=== PATIENT | male | born 1955 | race Caucasian/White ===

== ENCOUNTER 2017-09-09 08:58 | Emergency (ER) | payer OTHER ==
[~2017-09-09] VITALS: Ht 180.3 cm; Wt 108.9 kg
[2017-09-09 10:01] LABS: Basophils # (auto) 0 uL; Basophils % (auto) 0.5 % (0.0-2.0); Eosinophils # (auto) 0.3 uL; Hematocrit 33.4 % (41.0-53.0); Hemoglobin 11.3 g/dL (13.5-17.5); Lymphocytes # (auto) 0.6 uL; Lymphocytes % (auto) 8.8 % (10.0-50.0); Mean Corpuscular Hemoglobin 33.9 pg (28.0-32.0); Mean Corpuscular Hgb Conc. 33.7 g/dL (32.0-36.0); Mean Corpuscular Volume 100.6 fL (80.0-100.0); Monocytes % (auto) 14.3 % (0.0-12.0); Neutrophils % (auto) 72.4 % (37.0-80.0); Nucleated Red Blood Cells % 0.1 %; Platelet Count (auto) 190 10^3/uL (140-450); Red Blood Cells 3.33 10^6/uL (4.5-5.90); Red Cell Distribution Width 13.8 % (11.8-14.3); White Blood Cell 6.9 10^3/uL (4.4-10.8)
[2017-09-09 10:14] LABS: INR 3.04 (0.9-1.15); Partial Thromboplastin Time 37.9 sec (22.64-33.71); Prothrombin Time 33.5 sec (9.37-12.3)
[2017-09-09 10:27] LABS: Albumin 3.2 g/dL (3.4-5.0); BUN/Creatinine Ratio 38.9; Bilirubin, Total 0.8 mg/dL (0.2-1.0); Calcium 8.8 mg/dL (8.5-10.1); Potassium 5.3 mmol/L (3.5-5.1); Total Protein 7.4 g/dL (6.4-8.2)
[2017-09-09] MEDS ORDERED: cefTRIAXone 1GM/10ml IVPUSH 10 ML IV ONE (11:15)
[2017-09-09] MEDS ORDERED: BACITRACIN TOP OINT 1 UD PKG TOP ONE (11:15)
[2017-09-09] MEDS ORDERED: LIDOCAINE 2%HCL (LOCAL ANESTH.) INJ 20ML MDV ID ONE ×2 (11:15→12:15)
[2017-09-09] MEDS ORDERED: LIDOCAINE 2%HCL (LOCAL ANESTH.) INJ 20ML MDV ONE (11:53)
[2017-09-09 13:54] LABS: Urine WBC None Seen /hpf (0 - 3)
[2017-09-09 14:08] LABS: Urine Bacteria NONE SEEN /hpf (None Seen); Urine Blood Negative /uL (Negative); Urine Specific Gravity 1.013 (1.001-1.035)
[2017-09-09 14:34] VITALS: BP 155/86
== END 2017-09-09 15:00 | disposition home or self-care (01) ==
LOC: ER 08:58 → EDBD 08:58 → ER 15:00
DX: S81.812A Laceration without foreign body, left lower leg, initial encounter (principal); E11.9 Type 2 diabetes mellitus without complications; E87.5 Hyperkalemia; I48.91 Unspecified atrial fibrillation; E46 Unspecified protein-calorie malnutrition; I11.0 Hypertensive heart disease with heart failure; I50.9 Heart failure, unspecified; W18.30XA Fall on same level, unspecified, initial encounter; Y93.89 Activity, other specified; Y99.8 Other external cause status; Y92.89 Other specified places as the place of occurrence of the external cause
CPT/HCPCS: 13121; 13122; 36415; 73590; 80053; 81001; 85025; 85610; 85730; 93005; 96374

== ENCOUNTER 2017-09-11 16:24 | Observation (INO) | payer OTHER ==
[~2017-09-11] VITALS: Ht 180.3 cm; Wt 108.9 kg
[2017-09-11 17:07] LABS: Hematocrit 31.5 % (41.0-53.0); Hemoglobin 10.7 g/dL (13.5-17.5); Mean Corpuscular Hgb Conc. 33.9 g/dL (32.0-36.0); Mean Corpuscular Volume 100.1 fL (80.0-100.0); Platelet Count (auto) 215 10^3/uL (140-450); Red Blood Cells 3.15 10^6/uL (4.5-5.90); Red Cell Distribution Width 13.9 % (11.8-14.3); White Blood Cell 9.9 10^3/uL (4.4-10.8)
[2017-09-11 17:21] LABS: Band Neutrophils % (manual) 0; Basophils % (manual) 0 (0.0-2.0); Blast Cells 0; Metamyelocytes % 0; Myelocytes % 0; Promyelocytes % 0; Reactive Lymphocytes 0
[2017-09-11 17:24] LABS: Albumin 3.3 g/dL (3.4-5.0); BUN/Creatinine Ratio 35.2; Calcium 8.7 mg/dL (8.5-10.1); Potassium 4.9 mmol/L (3.5-5.1)
[2017-09-11 17:27] LABS: Bilirubin, Total 1.3 mg/dL (0.2-1.0); Total Protein 7.5 g/dL (6.4-8.2)
[2017-09-11 17:48] LABS: Eosinophils % (manual) 1 (0-7); Lymphocytes % (manual) 11 (10.0-50.0); Monocytes % (manual) 14 (0-12)
[2017-09-11] MEDS ORDERED: cefTRIAXone 1GM/10ml IVPUSH 10 ML IV ONE (18:15)
[2017-09-11 19:05] LABS: INR 1.35 (0.9-1.15); Partial Thromboplastin Time 31.1 sec (22.64-33.71); Prothrombin Time 14.8 sec (9.37-12.3)
[2017-09-11] MEDS ORDERED: FUROSEMIDE 40 MG/4 ML VIAL IV ONE (19:15)
[2017-09-11] MEDS ORDERED: VANCOMYCIN 1GM/250ML 250 ML IV ONE (23:30)
[2017-09-12 01:17] VITALS: BP 134/76
== END 2017-09-12 00:52 | disposition short-term general hospital (02) | DRG 602 ==
LOC: ER 16:29 → OVERFLOW 18:16 → ER 09-12 00:52
PROVIDERS: ADMIT Family Medicine; ATTEND Family Medicine
DX: L03.116 Cellulitis of left lower limb (principal); I50.43 Acute on chronic combined systolic (congestive) and diastolic (congestive) heart failure; I48.91 Unspecified atrial fibrillation; I11.0 Hypertensive heart disease with heart failure; E11.9 Type 2 diabetes mellitus without complications; S81.802D Unspecified open wound, left lower leg, subsequent encounter; X58.XXXD Exposure to other specified factors, subsequent encounter; Y93.89 Activity, other specified; Y92.89 Other specified places as the place of occurrence of the external cause; Y99.0 Civilian activity done for income or pay; Z82.49 Family history of ischemic heart disease and other diseases of the circulatory system
CPT/HCPCS: 36415; 71045; 80053; 83605; 83735; 83880; 84443; 85007; 85027; 85610; 85730; 87040; 93005; 93971; 96365; 96375; 99285; G0378; J1940; J3370

== ENCOUNTER 2022-04-15 15:40 | Emergency (ER) | payer OTHER ==
[~2022-04-15] VITALS: Ht 170.2 cm; Wt 75.0 kg
[2022-04-15 16:57] LABS: Basophils # (auto) 0 10 ^3/uL (0-0.2); Basophils % (auto) 0.2 % (0.0-2.0); Eosinophils # (auto) 0 10 ^3/uL (0-0.8); Eosinophils % (auto) 0.2 % (0.0-7.0); Hematocrit 30.3 % (41.0-53.0); Hemoglobin 9.8 g/dL (13.5-17.5); Lymphocytes # (auto) 0.5 10 ^3/uL (0.4-5.4); Lymphocytes % (auto) 5.3 % (10.0-50.0); Mean Corpuscular Hemoglobin 30.6 pg (28.0-32.0); Mean Corpuscular Hgb Conc. 32.3 g/dL (32.0-36.0); Mean Corpuscular Volume 94.8 fL (80.0-100.0); Monocytes # (auto) 1.6 10 ^3/uL (0-1.3); Monocytes % (auto) 15.7 % (0.0-12.0); Neutrophils # (auto) 8.1 10 ^3/uL (1.6-8.6); Neutrophils % (auto) 78.6 % (37.0-80.0); Red Cell Distribution Width 15.1 % (11.8-14.3); White Blood Cell 10.3 10^3/uL (4.4-10.8)
[2022-04-15] MEDS ORDERED: ACETAMINOPHEN 325 MG TAB PO ONE (17:00)
[2022-04-15] MEDS ORDERED: PIPERACILLIN-TAZOB 3.375GM 100 ML IV ONE (17:00)
[2022-04-15 17:16] LABS: Calcium 8.7 mg/dL (8.5-10.1); Potassium 4.4 mmol/L (3.5-5.1)
[2022-04-15 17:20] LABS: BUN/Creatinine Ratio 25.7; Bilirubin, Total 1.2 mg/dL (0.2-1.0); Total Protein 7.9 g/dL (6.4-8.2)
[2022-04-15 17:26] LABS: Magnesium 1.6 mg/dL (1.6-2.6)
[2022-04-15 17:35] LABS: CRP High Sensitivity 1.99 mg/dL (< 0.3)
[2022-04-15] MEDS ORDERED: FUROSEMIDE 100 MG/10ML VIAL IV ONE (18:15)
[2022-04-15] MEDS ORDERED: dilTIAZem 25 MG/5 ML VIAL IV ONE (18:30)
[2022-04-15 20:41] LABS: Urine Bacteria NONE SEEN /hpf (None Seen); Urine Blood 1+ /uL (Negative); Urine Specific Gravity 1.006 (1.001-1.035); Urine WBC 1 /hpf (0 - 3)
[2022-04-15 21:29] VITALS: BP 139/64
== END 2022-04-15 21:54 | disposition short-term general hospital (02) ==
LOC: EDBD 15:40 → ER 15:40
DX: A41.9 Sepsis, unspecified organism (principal); I48.20 Chronic atrial fibrillation, unspecified; I11.0 Hypertensive heart disease with heart failure; I50.9 Heart failure, unspecified; E78.5 Hyperlipidemia, unspecified; Z90.89 Acquired absence of other organs; Z20.822 Contact with and (suspected) exposure to COVID-19
CPT/HCPCS: 36415; 71045; 73630; 74176; 80053; 81001; 82550; 82962; 83605; 83735; 83880; 84484; 85025; 86141; 87040; 87077; 87186; 87426; 93005; 96365; 96366; 96375; 99291; J1940; J2543

== ENCOUNTER → 2022-08-08 | Outpatient (CLI) | payer OTHER ==
[2022-08-08 10:36] LABS: Basophils # (auto) 0 10 ^3/uL (0-0.2); Basophils % (auto) 0.7 % (0.0-2.0); Eosinophils # (auto) 0.5 10 ^3/uL (0-0.8); Eosinophils % (auto) 7.2 % (0.0-7.0); Hematocrit 32.1 % (41.0-53.0); Hemoglobin 10.9 g/dL (13.5-17.5); Lymphocytes # (auto) 0.9 10 ^3/uL (0.4-5.4); Lymphocytes % (auto) 14.1 % (10.0-50.0); Mean Corpuscular Hemoglobin 32.2 pg (28.0-32.0); Mean Corpuscular Hgb Conc. 33.9 g/dL (32.0-36.0); Mean Corpuscular Volume 94.9 fL (80.0-100.0); Monocytes % (auto) 15.5 % (0.0-12.0); Neutrophils # (auto) 4.2 10 ^3/uL (1.6-8.6); Neutrophils % (auto) 62.5 % (37.0-80.0); Red Blood Cells 3.38 10^6/uL (4.5-5.90); White Blood Cell 6.7 10^3/uL (4.4-10.8)
[2022-08-08 10:44] LABS: Urine Bacteria NONE SEEN /hpf (None Seen); Urine Blood Negative /uL (Negative); Urine Specific Gravity 1.011 (1.001-1.035); Urine WBC <1 /hpf (0 - 3)
[2022-08-08 11:03] LABS: Albumin 3.8 g/dL (3.4-5.0); Calcium 9.9 mg/dL (8.5-10.1); Potassium 4.9 mmol/L (3.5-5.1)
[2022-08-08 11:08] LABS: BUN/Creatinine Ratio 40.8; Bilirubin, Total 0.5 mg/dL (0.2-1.0); Total Protein 8.2 g/dL (6.4-8.2)
== END | disposition home or self-care (01) ==
LOC: LAB 10:13
PROVIDERS: ATTEND Internal Medicine
DX: Z12.11 Encounter for screening for malignant neoplasm of colon (principal); I10 Essential (primary) hypertension; E11.9 Type 2 diabetes mellitus without complications
CPT/HCPCS: 36415; 80053; 80061; 81001; 82043; 83036; 83880; 84153; 85025

== ENCOUNTER → 2022-08-14 | Outpatient (CLI) | payer OTHER | END | disposition home or self-care (01) | LOC: XYW 13:26 | PROVIDERS: ATTEND Internal Medicine | DX: I08.0 Rheumatic disorders of both mitral and aortic valves (principal); I48.91 Unspecified atrial fibrillation | CPT/HCPCS: 93306 ==

== ENCOUNTER → 2022-09-17 | Outpatient (CLI) | payer OTHER ==
[2022-09-17 11:51] LABS: Basophils # (auto) 0 10 ^3/uL (0-0.2); Basophils % (auto) 0.7 % (0.0-2.0); Eosinophils # (auto) 0.2 10 ^3/uL (0-0.8); Eosinophils % (auto) 4.1 % (0.0-7.0); Lymphocytes # (auto) 1.2 10 ^3/uL (0.4-5.4); Lymphocytes % (auto) 22.7 % (10.0-50.0); Mean Corpuscular Hgb Conc. 34.4 g/dL (32.0-36.0); Mean Corpuscular Volume 98.9 fL (80.0-100.0); Monocytes # (auto) 0.8 10 ^3/uL (0-1.3); Monocytes % (auto) 14.2 % (0.0-12.0); Neutrophils # (auto) 3.1 10 ^3/uL (1.6-8.6); Neutrophils % (auto) 58.3 % (37.0-80.0); Nucleated Red Blood Cells % 0.1 %; Red Blood Cells 3.23 10^6/uL (4.5-5.90); Red Cell Distribution Width 13.9 % (11.8-14.3); White Blood Cell 5.3 10^3/uL (4.4-10.8)
[2022-09-17 12:43] LABS: Folate (Folic Acid) > 24.00 ng/mL (5.38-24)
== END | disposition home or self-care (01) ==
LOC: LAB 11:17
PROVIDERS: ATTEND Internal Medicine
DX: D64.9 Anemia, unspecified (principal)
CPT/HCPCS: 36415; 82607; 82746; 85025

== ENCOUNTER 2022-11-23 13:56 | Inpatient (IN) | payer OTHER ==
[~2022-11-23] VITALS: Ht 180.3 cm; Wt 88.1 kg
[2022-11-23 15:05] LABS: Basophils # (auto) 0 10 ^3/uL (0-0.2); Basophils % (auto) 0.8 % (0.0-2.0); Eosinophils # (auto) 0.1 10 ^3/uL (0-0.8); Eosinophils % (auto) 1.2 % (0.0-7.0); Hematocrit 31.6 % (41.0-53.0); Hemoglobin 10.6 g/dL (13.5-17.5); Lymphocytes # (auto) 1.1 10 ^3/uL (0.4-5.4); Mean Corpuscular Hemoglobin 33.2 pg (28.0-32.0); Mean Corpuscular Hgb Conc. 33.7 g/dL (32.0-36.0); Mean Corpuscular Volume 98.8 fL (80.0-100.0); Monocytes # (auto) 0.6 10 ^3/uL (0-1.3); Monocytes % (auto) 12.4 % (0.0-12.0); Neutrophils # (auto) 3.4 10 ^3/uL (1.6-8.6); Neutrophils % (auto) 64.6 % (37.0-80.0); Red Cell Distribution Width 13.7 % (11.8-14.3); White Blood Cell 5.2 10^3/uL (4.4-10.8)
[2022-11-23 15:07] LABS: Albumin 4.2 g/dL (3.4-5.0); Calcium 9.5 mg/dL (8.5-10.1); Potassium 5.5 mmol/L (3.5-5.1)
[2022-11-23 15:10] LABS: BUN/Creatinine Ratio 46.9 (10.0-20.0); Bilirubin, Total 0.7 mg/dL (0.2-1.0); Total Protein 7.5 g/dL (6.4-8.2)
[2022-11-23 15:39] LABS: INR 1.06 (0.9-1.15); Partial Thromboplastin Time 30.2 sec (24.6-33.4)
[2022-11-23] MEDS ORDERED: SODIUM BICARBONATE 8.4 % INJ 50ML VIAL IV ONE (16:00)
[2022-11-23] MEDS ORDERED: CALCIUM GLUC 1,000mg/50ml-NS 50 ML IV ONE (16:00)
[2022-11-23] MEDS ORDERED: CLINDAMYCIN 600MG IV 50 ML IV ONE (17:00)
[2022-11-23] MEDS ORDERED: NITROGLYCERIN 0.4 MG SL TAB SL PRN (18:15)
[2022-11-23] MEDS: SODIUM CHLORIDE 0.9% 1,000 ML IV SCH ×2 (18:15→23:30)
[2022-11-23] MEDS ORDERED: hydrALAZINE HCL 20 MG/ML VL IV PRN ×2 (18:15)
[2022-11-23] MEDS ORDERED: ACETAMINOPHEN 325 MG TAB PO PRN (18:15)
[2022-11-23] MEDS ORDERED: MORPHINE SULFATE INJ 2 MG/ml SYRG IV PRN ×2 (18:15)
[2022-11-23] MEDS ORDERED: HYDROcodone-ACET 5/325MG TAB PO PRN (18:15)
[2022-11-23] MEDS ORDERED: DIGO0.12 PO (18:19)
[2022-11-23] MEDS ORDERED: DEXTROSE (50%) 50ML SYRG IV PRN (18:30)
[2022-11-23 19:04] LABS: Cholesterol 120 mg/dL (< 200); HDL Cholesterol 87 mg/dL (40-59); LDL Cholesterol 34 mg/dL (< 100); Triglycerides 36 mg/dL (< 150)
[2022-11-23 19:48] LABS: Urine WBC None Seen /hpf (0 - 3)
[2022-11-23 20:02] LABS: Urine Bacteria NONE SEEN /hpf (None Seen); Urine Blood Negative /uL (Negative); Urine Specific Gravity 1.006 (1.001-1.035)
[2022-11-23] MEDS: ACCU-CHEK COMFORT CURVE STRIP VI SCH (21:24)
[2022-11-23] MEDS: InsuLIN REG 1unit/0.01ml Soln (100units/ml) SC SCH (21:24)
[2022-11-23 23:11] VITALS: BP 149/61
[2022-11-23] MEDS: CLINDAMYCIN 600MG IV 50 ML IV SCH (23:30)
[2022-11-24] MEDS ORDERED: LISI20TA28 PO (00:57)
[2022-11-24] MEDS ORDERED: RIV20T PO (00:57)
[2022-11-24] MEDS ORDERED: SIMV-8 PO (00:57)
[2022-11-24] MEDS ORDERED: METF-371 PO (00:57)
[2022-11-24 05:00] VITALS: BP 139/58
[2022-11-24] MEDS: ACCU-CHEK COMFORT CURVE STRIP VI SCH ×4 (05:03→21:18)
[2022-11-24] MEDS: InsuLIN REG 1unit/0.01ml Soln (100units/ml) SC SCH ×4 (05:04→21:29)
[2022-11-24 05:51] LABS: Basophils # (auto) 0 10 ^3/uL (0-0.2); Basophils % (auto) 0.4 % (0.0-2.0); Eosinophils # (auto) 0.1 10 ^3/uL (0-0.8); Mean Corpuscular Hemoglobin 34.6 pg (28.0-32.0); Monocytes # (auto) 0.7 10 ^3/uL (0-1.3); Neutrophils # (auto) 2.8 10 ^3/uL (1.6-8.6); Neutrophils % (auto) 61.4 % (37.0-80.0); White Blood Cell 4.5 10^3/uL (4.4-10.8)
[2022-11-24 05:56] LABS: Eosinophils % (auto) 1.3 % (0.0-7.0); Hematocrit 27.5 % (41.0-53.0); Hemoglobin 9.7 g/dL (13.5-17.5); Lymphocytes % (auto) 21.2 % (10.0-50.0); Mean Corpuscular Hgb Conc. 35.2 g/dL (32.0-36.0); Mean Corpuscular Volume 98.1 fL (80.0-100.0); Monocytes % (auto) 15.7 % (0.0-12.0); Nucleated Red Blood Cells % 0.1 %; Red Cell Distribution Width 13.9 % (11.8-14.3)
[2022-11-24 06:00] LABS: Potassium 4.6 mmol/L (3.5-5.1)
[2022-11-24 06:07] LABS: Albumin 3.5 g/dL (3.4-5.0); BUN/Creatinine Ratio 47.4 (10.0-20.0); Bilirubin, Total 0.6 mg/dL (0.2-1.0); Calcium 9.3 mg/dL (8.5-10.1); Total Protein 6.5 g/dL (6.4-8.2)
[2022-11-24] MEDS: CLINDAMYCIN 600MG IV 50 ML IV SCH ×3 (06:14→21:17)
[2022-11-24] MEDS ORDERED: cefTRIAXone 1GM/50ML D5W 50 ML IV SCH (09:00)
[2022-11-24 09:11] VITALS: BP 135/57
[2022-11-24] MEDS: DIGOXIN 0.125 MG TAB PO SCH (10:00)
[2022-11-24] MEDS: ENOXAPARIN SOD 40 MG/0.4 ML SYRINGE SC SCH (10:11)
[2022-11-24 11:49] LABS: Urine Bacteria None Seen /hpf (None Seen); Urine WBC None Seen /hpf (0 - 3)
[2022-11-24 13:00] VITALS: BP 127/53
[2022-11-24 13:31] LABS: Creatinine, Urine 48 mg/dL (30.0-125.0); Protein, Urine 15.7 mg/dL (0.0-11.9); Sodium Urine 38 mmol/L (40-220)
[2022-11-24] MEDS: CEFEPIME 1GM/ 50ML 50 ML IV SCH ×2 (16:56→23:01)
[2022-11-24] MEDS: SODIUM BICARBONATE 50ML VIAL 75 ML in D5W 5% 1,000 ML IV SCH (16:56)
[2022-11-24 17:00] VITALS: BP 133/61
[2022-11-24] MEDS ORDERED: FURO40TA4 PO (21:28)
[2022-11-24 21:47] VITALS: BP 133/91
[2022-11-24] MEDS ORDERED: POTA-264 PO (22:15)
[2022-11-24] MEDS ORDERED: BISO10TA31 PO (22:15)
[2022-11-25] MEDS: SODIUM BICARBONATE 50ML VIAL 75 ML in D5W 5% 1,000 ML IV SCH ×3 (00:45→22:16)
[2022-11-25 05:02] VITALS: BP 130/57
[2022-11-25] MEDS: CLINDAMYCIN 600MG IV 50 ML IV SCH ×3 (05:53→22:16)
[2022-11-25 06:10] LABS: Basophils # (auto) 0 10 ^3/uL (0-0.2); Basophils % (auto) 0.4 % (0.0-2.0); Eosinophils # (auto) 0.1 10 ^3/uL (0-0.8); Eosinophils % (auto) 1.1 % (0.0-7.0); Hemoglobin 9.3 g/dL (13.5-17.5); Lymphocytes % (auto) 17.6 % (10.0-50.0); Mean Corpuscular Hgb Conc. 34.5 g/dL (32.0-36.0); Mean Corpuscular Volume 98.5 fL (80.0-100.0); Monocytes # (auto) 0.8 10 ^3/uL (0-1.3); Monocytes % (auto) 14.1 % (0.0-12.0); Neutrophils # (auto) 3.6 10 ^3/uL (1.6-8.6); Neutrophils % (auto) 66.8 % (37.0-80.0); Red Blood Cells 2.74 10^6/uL (4.5-5.90); Red Cell Distribution Width 13.8 % (11.8-14.3); White Blood Cell 5.4 10^3/uL (4.4-10.8)
[2022-11-25 06:30] LABS: Potassium 4.4 mmol/L (3.5-5.1)
[2022-11-25 06:34] LABS: BUN/Creatinine Ratio 44.3 (10.0-20.0); Magnesium 2.2 mg/dL (1.6-2.6)
[2022-11-25] MEDS: ACCU-CHEK COMFORT CURVE STRIP VI SCH ×4 (06:35→22:13)
[2022-11-25] MEDS: InsuLIN REG 1unit/0.01ml Soln (100units/ml) SC SCH ×4 (06:36→22:14)
[2022-11-25] MEDS: CEFEPIME 1GM/ 50ML 50 ML IV SCH ×3 (07:10→23:16)
[2022-11-25 08:14] VITALS: BP 132/54
[2022-11-25] MEDS: DIGOXIN 0.125 MG TAB PO SCH (10:00)
[2022-11-25] MEDS: ENOXAPARIN SOD 40 MG/0.4 ML SYRINGE SC SCH (12:00)
[2022-11-25 13:00] VITALS: BP 138/60
[2022-11-25 17:00] VITALS: BP 148/67
[2022-11-25 22:00] VITALS: BP 128/68
[2022-11-26 04:57] VITALS: BP_SYST 103; BP_SYST 136; BP_DIAS 55; BP_DIAS 61
[2022-11-26] MEDS: CLINDAMYCIN 600MG IV 50 ML IV SCH ×2 (06:19→13:55)
[2022-11-26] MEDS: ACCU-CHEK COMFORT CURVE STRIP VI SCH ×2 (06:29→11:30)
[2022-11-26] MEDS: InsuLIN REG 1unit/0.01ml Soln (100units/ml) SC SCH ×2 (06:29→11:30)
[2022-11-26] MEDS: CEFEPIME 1GM/ 50ML 50 ML IV SCH (07:21)
[2022-11-26 09:00] VITALS: BP 142/77
[2022-11-26] MEDS: DIGOXIN 0.125 MG TAB PO SCH (10:00)
[2022-11-26] MEDS: ENOXAPARIN SOD 40 MG/0.4 ML SYRINGE SC SCH (10:36)
[2022-11-26] MEDS: SODIUM BICARBONATE 50ML VIAL 75 ML in D5W 5% 1,000 ML IV SCH (10:38)
[2022-11-26 13:00] VITALS: BP 113/51
[2022-11-26 14:24] VITALS: BP 115/75
[2022-11-26] MEDS ORDERED: DAKINS QUARTER STR 0.125% (NaHypochlorite) 473 ML TOPICAL SOL TOP SCH (22:00)
== END 2022-11-26 15:15 | disposition home or self-care (01) | DRG 638 ==
LOC: ER 13:56 → OVERFLOW 18:19 → EAST 23:04
PROVIDERS: ADMIT Registered Nurse; ATTEND Internal Medicine
DX: E11.69 Type 2 diabetes mellitus with other specified complication (principal); E87.1 Hypo-osmolality and hyponatremia; M86.8X7 Other osteomyelitis, ankle and foot; E11.621 Type 2 diabetes mellitus with foot ulcer; I11.0 Hypertensive heart disease with heart failure; E11.610 Type 2 diabetes mellitus with diabetic neuropathic arthropathy; L97.519 Non-pressure chronic ulcer of other part of right foot with unspecified severity; I48.91 Unspecified atrial fibrillation; E78.5 Hyperlipidemia, unspecified; E87.5 Hyperkalemia; N17.9 Acute kidney failure, unspecified; I50.9 Heart failure, unspecified; Z83.3 Family history of diabetes mellitus
CPT/HCPCS: 36415; 71045; 73700; 80048; 80053; 80061; 81001; 81015; 82043; 82306; 82570; 82962; 83036; 83735; 83935; 84156; 84300; 84443; 85025; 85610; 85652; 85730; 86141; 87040; 93926; 93971; 96365; 96367; 96375; G0378; J0696; J1815; J3490

== ENCOUNTER → 2022-12-09 | Outpatient (CLI) | payer OTHER ==
[~2022-12-09] MED LIST: BISO10TA31 PO; DIGO0.12 PO; FURO40TA4 PO; LISI20TA28 PO; METF-371 PO; POTA-264 PO; RIV20T PO; SIMV-8 PO
[2022-12-09 09:49] LABS: Basophils # (auto) 0.1 10 ^3/uL (0-0.2); Eosinophils # (auto) 0.1 10 ^3/uL (0-0.8); Eosinophils % (auto) 2.5 % (0.0-7.0); Hematocrit 32.8 % (41.0-53.0); Hemoglobin 10.4 g/dL (13.5-17.5); Lymphocytes # (auto) 1.3 10 ^3/uL (0.4-5.4); Lymphocytes % (auto) 25.5 % (10.0-50.0); Mean Corpuscular Hemoglobin 31.4 pg (28.0-32.0); Mean Corpuscular Hgb Conc. 31.9 g/dL (32.0-36.0); Mean Corpuscular Volume 98.7 fL (80.0-100.0); Monocytes # (auto) 0.8 10 ^3/uL (0-1.3); Monocytes % (auto) 15.8 % (0.0-12.0); Neutrophils # (auto) 2.9 10 ^3/uL (1.6-8.6); Neutrophils % (auto) 55.2 % (37.0-80.0); Nucleated Red Blood Cells % 0.1 %; Red Blood Cells 3.32 10^6/uL (4.5-5.90); Red Cell Distribution Width 13.4 % (11.8-14.3); White Blood Cell 5.3 10^3/uL (4.4-10.8)
== END | disposition home or self-care (01) ==
LOC: LAB 09:34
PROVIDERS: ATTEND Internal Medicine
DX: D64.9 Anemia, unspecified (principal)
CPT/HCPCS: 36415; 85025

== ENCOUNTER → 2022-12-09 | Outpatient (CLI) | payer OTHER | END | disposition home or self-care (01) | LOC: XYW 09:49 | PROVIDERS: ATTEND Internal Medicine | DX: I70.202 Unspecified atherosclerosis of native arteries of extremities, left leg (principal); L97.529 Non-pressure chronic ulcer of other part of left foot with unspecified severity; M86.8X7 Other osteomyelitis, ankle and foot | CPT/HCPCS: 93926 ==

== ENCOUNTER → 2022-12-17 | Outpatient (CLI) | payer OTHER ==
[2022-12-17 12:51] LABS: BUN/Creatinine Ratio 38.1 (10.0-20.0); Calcium 10.1 mg/dL (8.5-10.1); Potassium 5.3 mmol/L (3.5-5.1)
== END | disposition home or self-care (01) ==
LOC: LAB 11:58
PROVIDERS: ATTEND Internal Medicine
DX: I51.7 Cardiomegaly (principal); I50.30 Unspecified diastolic (congestive) heart failure; M06.9 Rheumatoid arthritis, unspecified
CPT/HCPCS: 36415; 80048; 83880

== ENCOUNTER → 2022-12-19 | Outpatient (CLI) | payer OTHER ==
[2022-12-19 13:43] LABS: BUN/Creatinine Ratio 44.9 (10.0-20.0); Calcium 10.5 mg/dL (8.5-10.1); Potassium 5.4 mmol/L (3.5-5.1)
== END | disposition home or self-care (01) ==
LOC: LAB 12:48
PROVIDERS: ATTEND Internal Medicine
DX: E87.5 Hyperkalemia (principal)
CPT/HCPCS: 36415; 80048

== ENCOUNTER → 2023-01-14 | Outpatient (CLI) | payer OTHER ==
[~2023-01-14] MED LIST changes: -LISI20TA28 PO; +LISI20TA56 PO; -SIMV-8 PO; +SIMV20TA20 PO
[2023-01-14 11:18] LABS: Potassium 4.7 mmol/L (3.5-5.1)
[2023-01-14 11:39] LABS: BUN/Creatinine Ratio 45.8 (10.0-20.0); Calcium 9.6 mg/dL (8.5-10.1)
== END | disposition home or self-care (01) ==
LOC: LAB 10:27
PROVIDERS: ATTEND Internal Medicine
DX: E11.9 Type 2 diabetes mellitus without complications (principal)
CPT/HCPCS: 36415; 80048

== ENCOUNTER → 2023-01-21 | Outpatient (CLI) | payer OTHER | END | disposition home or self-care (01) | LOC: Rad HDHVI 15:39 | PROVIDERS: ATTEND Internal Medicine Cardiovascular Disease | DX: I08.3 Combined rheumatic disorders of mitral, aortic and tricuspid valves (principal); I11.9 Hypertensive heart disease without heart failure; R07.9 Chest pain, unspecified; I27.20 Pulmonary hypertension, unspecified | CPT/HCPCS: 93306 ==

== ENCOUNTER → 2023-01-28 | Outpatient (CLI) | payer OTHER ==
[~2023-01-28] VITALS: Ht 180.3 cm; Wt 90.7 kg
[~2023-01-28] MED LIST changes: +ADENOSINE 76 MG in GIVE UN-DILUTED 0 ML IV ONE; +ADENOSINE 90 MG/30 ML INJ IV ONE
== END | disposition home or self-care (01) ==
LOC: Rad HDHVI 09:23
PROVIDERS: ATTEND Internal Medicine Cardiovascular Disease
DX: Z01.810 Encounter for preprocedural cardiovascular examination (principal); I10 Essential (primary) hypertension; R07.89 Other chest pain; E78.00 Pure hypercholesterolemia, unspecified; E11.65 Type 2 diabetes mellitus with hyperglycemia; E11.21 Type 2 diabetes mellitus with diabetic nephropathy; I99.9 Unspecified disorder of circulatory system; Z82.49 Family history of ischemic heart disease and other diseases of the circulatory system
CPT/HCPCS: 78452; 93005; 96374; 96375; A9500; J0153

== ENCOUNTER → 2023-02-11 | Outpatient (CLI) | payer OTHER ==
[~2023-02-11] MED LIST changes: -ADENOSINE 76 MG in GIVE UN-DILUTED 0 ML IV ONE; -ADENOSINE 90 MG/30 ML INJ IV ONE
[2023-02-11 12:37] LABS: BUN/Creatinine Ratio 38.5 (10.0-20.0); Calcium 9.7 mg/dL (8.5-10.1); Potassium 4.4 mmol/L (3.5-5.1)
== END | disposition home or self-care (01) ==
LOC: LAB 11:47
PROVIDERS: ATTEND Internal Medicine
DX: E11.9 Type 2 diabetes mellitus without complications (principal)
CPT/HCPCS: 36415; 80048

== ENCOUNTER 2023-04-24 06:10 | Day surgery (SDC) | payer OTHER ==
[2023-04-21 10:12] LABS: Basophils # (auto) 0 10 ^3/uL (0-0.2); Basophils % (auto) 0.6 % (0.0-2.0); Eosinophils # (auto) 0.1 10 ^3/uL (0-0.8); Eosinophils % (auto) 2.2 % (0.0-7.0); Hematocrit 32.8 % (41.0-53.0); Hemoglobin 11.2 g/dL (13.5-17.5); Lymphocytes # (auto) 1.2 10 ^3/uL (0.4-5.4); Lymphocytes % (auto) 22.2 % (10.0-50.0); Mean Corpuscular Hemoglobin 33.9 pg (28.0-32.0); Mean Corpuscular Hgb Conc. 34.3 g/dL (32.0-36.0); Mean Corpuscular Volume 98.8 fL (80.0-100.0); Monocytes # (auto) 0.7 10 ^3/uL (0-1.3); Monocytes % (auto) 13.9 % (0.0-12.0); Neutrophils # (auto) 3.3 10 ^3/uL (1.6-8.6); Neutrophils % (auto) 61.1 % (37.0-80.0); Nucleated Red Blood Cells % 0.1 %; Red Blood Cells 3.32 10^6/uL (4.5-5.90); Red Cell Distribution Width 13.6 % (11.8-14.3); White Blood Cell 5.3 10^3/uL (4.4-10.8)
[2023-04-21 11:09] LABS: Alanine Aminotransferase 14 U/L (7-40); Albumin 4.6 g/dL (3.2-4.8); Alkaline Phosphatase 62 U/L (46-116); Anion Gap 5 (5-15); Aspartate Aminotransferase 12 U/L (13-40); Blood Urea Nitrogen 36 mg/dL (9-23); Calcium 10.2 mg/dL (8.5-10.1); Carbon Dioxide 29 mmol/L (20-30); Chloride 104 mmol/L (98-107); Glucose 123 mg/dL (74-106); Potassium 4.6 mmol/L (3.5-5.1); Sodium 138 mmol/L (136-145); Urine Bacteria NONE SEEN /hpf (None Seen); Urine Blood Negative /uL (Negative); Urine Clarity Clear (Clear); Urine Color Yellow (Yellow); Urine Hyaline Cast FEW /lpf (0 - 2); Urine Protein, UAD Negative (Negative); Urine Specific Gravity 1.014 (1.001-1.035); Urine Urobilinogen Normal (Negative); Urine WBC <1 /hpf (0 - 3); Urine pH 6.5 (5.0-8.0)
[2023-04-21 11:10] LABS: Bilirubin, Total 0.6 mg/dL (0.2-1.0); Total Protein 7.4 g/dL (5.7-8.2)
[2023-04-21 11:34] LABS: INR 1.08 (0.9-1.15); Prothrombin Time 11.3 sec (9.3-11.8)
[~2023-04-24] VITALS: Ht 180.3 cm; Wt 81.6 kg
[~2023-04-24 06:10] MED LIST changes: -BISO10TA31 PO; -DIGO0.12 PO; +ceFAZolin 1GM/50ML 100 ML IV ONE
[2023-04-24] MEDS ORDERED: PHENYLEPHRINE HCL 10 MG/ML VL IV ONE (06:11)
[2023-04-24] MEDS ORDERED: PROPOFOL 10 MG/ML 20 ML IV ONE (07:14)
[2023-04-24] MEDS ORDERED: KETOROLAC TROMETH 30 MG/ML 1ML VIAL ONE (07:14)
[2023-04-24] MEDS ORDERED: ONDANSETRON HCL 4 MG/2 ML VIAL ONE (07:14)
[2023-04-24] MEDS ORDERED: GLYCOPYRROLATE 0.2 MG/ML 1ML VIAL ONE (07:14)
[2023-04-24] MEDS ORDERED: LIDOCAINE 2% (LOCAL ANESTH.) PF 5ml SDV ONE (07:14)
[2023-04-24] MEDS ORDERED: DexAMETHasone SOD PHOS 10MG/1ML VIAL INJ ONE (07:14)
[2023-04-24] MEDS ORDERED: LIDOCAINE 1% HCL (LOCAL ANESTH.) INJ 20ML MDV ONE (07:19)
[2023-04-24] MEDS ORDERED: BUPIVACAINE 0.25% INJ 50ML VIAL ONE (07:20)
[2023-04-24] MEDS ORDERED: ESMOLOL HCL 10 ML IV ONE (07:43)
[2023-04-24] MEDS ORDERED: AUG875T PO (08:09)
[2023-04-24] MEDS ORDERED: ACE650RS PR (08:09)
[2023-04-24 08:12] VITALS: TEMP 97.1; O2SAT 100
[2023-04-24 08:51] VITALS: BP 136/92; PULSE 103; RESP 17; O2SAT 100
== END 2023-04-24 09:10 | disposition home or self-care (01) ==
LOC: SUR 06:10
PROVIDERS: ATTEND Student in an Organized Health Care Education/Training Program
DX: E11.621 Type 2 diabetes mellitus with foot ulcer (principal); M89.9 Disorder of bone, unspecified; Z79.84 Long term (current) use of oral hypoglycemic drugs; I10 Essential (primary) hypertension; Z79.899 Other long term (current) drug therapy; Z98.890 Other specified postprocedural states
CPT/HCPCS: 11042; 28104; 36415; 80053; 81001; 82962; 85025; 85610; 85730; C1713; J0690; J1100; J1885; J2001; J2370; J2405; J2704; J3490; L3260

== ENCOUNTER → 2023-05-08 | Outpatient (CLI) | payer OTHER ==
[~2023-05-08] MED LIST changes: +ACE650RS PR; +AUG875T PO; -ceFAZolin 1GM/50ML 100 ML IV ONE
[2023-05-08 11:27] LABS: Basophils # (auto) 0 10 ^3/uL (0-0.2); Basophils % (auto) 0.7 % (0.0-2.0); Eosinophils # (auto) 0.5 10 ^3/uL (0-0.8); Eosinophils % (auto) 6.9 % (0.0-7.0); Hemoglobin 10.2 g/dL (13.5-17.5); Lymphocytes # (auto) 1.1 10 ^3/uL (0.4-5.4); Mean Corpuscular Hemoglobin 33.5 pg (28.0-32.0); Mean Corpuscular Hgb Conc. 33.9 g/dL (32.0-36.0); Monocytes # (auto) 0.6 10 ^3/uL (0-1.3); Monocytes % (auto) 8.5 % (0.0-12.0); Neutrophils # (auto) 4.4 10 ^3/uL (1.6-8.6); Neutrophils % (auto) 66.9 % (37.0-80.0); Red Blood Cells 3.03 10^6/uL (4.5-5.90); Red Cell Distribution Width 13.2 % (11.8-14.3); White Blood Cell 6.5 10^3/uL (4.4-10.8)
[2023-05-08 11:48] LABS: Creatinine, Urine 60.54 mg/dL (30.0-125.0)
[2023-05-08 11:56] LABS: Alanine Aminotransferase 10 U/L (7-40); Albumin 4.4 g/dL (3.2-4.8); Alkaline Phosphatase 70 U/L (46-116); Anion Gap 6 (5-15); Aspartate Aminotransferase 15 U/L (13-40); BUN/Creatinine Ratio 24.8 (10.0-20.0); Bilirubin, Total 0.7 mg/dL (0.2-1.0); Blood Urea Nitrogen 25 mg/dL (9-23); Calcium 9.9 mg/dL (8.7-10.4); Carbon Dioxide 26 mmol/L (20-30); Chloride 105 mmol/L (98-107); Glucose 104 mg/dL (74-106); Potassium 4.8 mmol/L (3.5-5.1); Sodium 137 mmol/L (136-145)
== END | disposition home or self-care (01) ==
LOC: LAB 10:51
PROVIDERS: ATTEND Internal Medicine
DX: E11.9 Type 2 diabetes mellitus without complications (principal)
CPT/HCPCS: 36415; 80053; 82043; 82570; 83036; 85025

== ENCOUNTER → 2023-08-21 | Outpatient (CLI) | payer OTHER | END | disposition home or self-care (01) | LOC: LAB 09:20 | PROVIDERS: ATTEND Family Medicine | DX: D48.5 Neoplasm of uncertain behavior of skin (principal) | CPT/HCPCS: 88302 ==

== ENCOUNTER 2023-10-12 10:44 | Inpatient (IN) | payer OTHER ==
[2023-10-05 10:26] LABS: INR 1.03 (0.9-1.15); Prothrombin Time 10.8 sec (9.3-11.8)
[2023-10-05 10:28] LABS: Basophils # (auto) 0 10 ^3/uL (0-0.2); Basophils % (auto) 0.7 % (0.0-2.0); Eosinophils # (auto) 0.5 10 ^3/uL (0-0.8); Eosinophils % (auto) 7.3 % (0.0-7.0); Hemoglobin 10.7 g/dL (13.5-17.5); Lymphocytes % (auto) 16.3 % (10.0-50.0); Mean Corpuscular Hemoglobin 32.9 pg (28.0-32.0); Mean Corpuscular Hgb Conc. 33.5 g/dL (32.0-36.0); Mean Corpuscular Volume 98.2 fL (80.0-100.0); Monocytes % (auto) 15.1 % (0.0-12.0); Neutrophils # (auto) 3.9 10 ^3/uL (1.6-8.6); Neutrophils % (auto) 60.6 % (37.0-80.0); Red Blood Cells 3.26 10^6/uL (4.5-5.90); Red Cell Distribution Width 12.7 % (11.8-14.3); Urine Bacteria NONE SEEN /hpf (None Seen); Urine Blood Negative /uL (Negative); Urine Clarity Clear (Clear); Urine Protein, UAD Negative (Negative); Urine Specific Gravity 1.012 (1.001-1.035); Urine Urobilinogen Normal (Negative); Urine WBC <1 /hpf (0 - 3); White Blood Cell 6.4 10^3/uL (4.4-10.8)
[2023-10-05 10:33] LABS: Urine Color Straw (Yellow)
[2023-10-05 11:10] LABS: Alanine Aminotransferase 10 U/L (7-40); Alkaline Phosphatase 79 U/L (46-116); Anion Gap 4 (5-15); BUN/Creatinine Ratio 41.9 (10.0-20.0); Blood Urea Nitrogen 49 mg/dL (9-23); Carbon Dioxide 29 mmol/L (20-30); Chloride 103 mmol/L (98-107); Glucose 104 mg/dL (74-106); Sodium 136 mmol/L (136-145)
[2023-10-05 11:12] LABS: Albumin 4.5 g/dL (3.2-4.8); Aspartate Aminotransferase 17 U/L (13-40); Bilirubin, Total 0.6 mg/dL (0.2-1.0); Total Protein 7.1 g/dL (5.7-8.2)
[~2023-10-12] VITALS: Ht 180.3 cm; Wt 77.0 kg
[~2023-10-12 10:44] MED LIST changes: -AUG875T PO
[2023-10-12] MEDS ORDERED: KETAMINE 50mg/ML 1ml syringe ONE (15:49)
[2023-10-12] MEDS ORDERED: DexAMETHasone SOD PHOS 10MG/1ML VIAL INJ ONE (15:50)
[2023-10-12] MEDS ORDERED: KETOROLAC TROMETH 30 MG/ML 1ML VIAL ONE (15:50)
[2023-10-12] MEDS ORDERED: ONDANSETRON HCL 4 MG/2 ML VIAL ONE (15:50)
[2023-10-12] MEDS ORDERED: GLYCOPYRROLATE 0.2 MG/ML 1ML VIAL ONE (15:50)
[2023-10-12] MEDS ORDERED: PROPOFOL 10 MG/ML 20 ML IV ONE (15:50)
[2023-10-12] MEDS ORDERED: LIDOCAINE 2% (LOCAL ANESTH.) PF 5ml SDV ONE (15:50)
[2023-10-12] MEDS ORDERED: LIDOCAINE HCL 2% TOP JELLY 5ML TOP ONE (16:24)
[2023-10-12] MEDS: ceFAZolin 1GM/50ML 100 ML IV ONE (16:30)
[2023-10-12] MEDS ORDERED: SODIUM CHLORIDE LOCK 10 ML ONE (16:43)
[2023-10-12] MEDS ORDERED: PHENYLEPHRINE HCL 10 MG/ML VL ONE (16:43)
[2023-10-12] MEDS: BUPIVACAINE HCL 50 ML ONE (16:47)
[2023-10-12] MEDS: LIDOCAINE W/ EPINEPHRINE 1% 20ML VIAL ONE (16:47)
[2023-10-12] MEDS ORDERED: ePHEDrine SULFATE 50 MG/ML AMP ONE (16:54)
[2023-10-12 17:26] VITALS: PULSE 100; RESP 13; O2SAT 100
[2023-10-12] MEDS ORDERED: HYDROmorphone HCL 2 MG/ML VL/or syr IV PRN ×2 (17:30→17:45)
[2023-10-12] MEDS ORDERED: ONDANSETRON HCL 4 MG/2 ML VIAL IV PRN ×2 (17:30→17:45)
[2023-10-12 17:40] VITALS: PULSE 100; RESP 12; O2SAT 97
[2023-10-12] MEDS ORDERED: oxyCODONE HCL 5MG TAB PO PRN (17:45)
[2023-10-12] MEDS ORDERED: fentaNYL CITRATE 100 MCG/2 ML VL IV PRN (17:45)
[2023-10-12] MEDS ORDERED: ePHEDrine SULFATE 50 MG/ML AMP IV PRN (17:45)
[2023-10-12] MEDS ORDERED: NALOXONE HCL 0.4 MG/ML VIAL IV PRN (17:45)
[2023-10-12] MEDS ORDERED: FLUMAZENIL 0.1 MG/ML INJ 10ML MDV IV PRN (17:45)
[2023-10-12] MEDS ORDERED: LABETALOL HCL 5 MG/ML 4ML SYRINGE IV PRN (17:45)
[2023-10-12] MEDS: ACETAMINOPHEN IV 1000 MG/100ML (10MG/ML) IV ONE ×2 (18:30→18:45)
[2023-10-12] MEDS ORDERED: DOCUSATE SOD 100 MG CAP PO PRN (18:30)
[2023-10-12] MEDS ORDERED: MORPHINE SULFATE INJ 2 MG/ml SYRG IV PRN ×2 (18:30)
[2023-10-12] MEDS ORDERED: DEXTROSE (50%) 50ML SYRG IV PRN (18:30)
[2023-10-12] MEDS ORDERED: HYDROcodone-ACET 5/325MG TAB PO PRN (18:30)
[2023-10-12] MEDS ORDERED: NITROGLYCERIN 0.4 MG SL TAB SL PRN (18:30)
[2023-10-12] MEDS: ACETAMINOPHEN IV 100 ML IV ONE (18:46)
[2023-10-12] MEDS: hydrALAZINE HCL 20 MG/ML VL IV PRN (19:30)
[2023-10-12 21:04] VITALS: PULSE 90; RESP 19; O2SAT 97
[2023-10-12 22:00] VITALS: BP 144/76; PULSE 90; RESP 19; TEMP 98; O2SAT 97
[2023-10-12] MEDS: SODIUM CHLOR 0.9% PF (SALINE LOCK) 10ML VIAL/SYR IV SCH (22:32)
[2023-10-12] MEDS: ACCU-CHEK COMFORT CURVE STRIP VI SCH (22:32)
[2023-10-12] MEDS: InsuLIN REG 1unit/0.01ml Soln (100units/ml) SC SCH (22:45)
[2023-10-12] MEDS: ATORVASTATIN 20 MG TAB PO SCH (22:46)
[2023-10-12] MEDS: ceFAZolin 1GM/50ML 50 ML IV SCH (22:47)
[2023-10-12] MEDS: ACETAMINOPHEN 325 MG TAB PO PRN (22:47)
[2023-10-13 01:00] VITALS: BP 110/62; PULSE 69; RESP 22; TEMP 98.3; O2SAT 99
[2023-10-13 05:00] VITALS: BP 134/71; PULSE 89; RESP 19; TEMP 98.5; O2SAT 97
[2023-10-13 05:37] LABS: Basophils # (auto) 0 10 ^3/uL (0-0.2); Basophils % (auto) 0.1 % (0.0-2.0); Eosinophils # (auto) 0 10 ^3/uL (0-0.8); Hematocrit 32.7 % (41.0-53.0); Hemoglobin 11.1 g/dL (13.5-17.5); Lymphocytes # (auto) 0.4 10 ^3/uL (0.4-5.4); Lymphocytes % (auto) 6.9 % (10.0-50.0); Mean Corpuscular Hemoglobin 33.9 pg (28.0-32.0); Mean Corpuscular Hgb Conc. 34.1 g/dL (32.0-36.0); Mean Corpuscular Volume 99.4 fL (80.0-100.0); Monocytes # (auto) 0.3 10 ^3/uL (0-1.3); Monocytes % (auto) 4.9 % (0.0-12.0); Neutrophils # (auto) 5.7 10 ^3/uL (1.6-8.6); Neutrophils % (auto) 88.1 % (37.0-80.0); Nucleated Red Blood Cells % 0.1 %; Red Blood Cells 3.29 10^6/uL (4.5-5.90); Red Cell Distribution Width 12.8 % (11.8-14.3); White Blood Cell 6.5 10^3/uL (4.4-10.8)
[2023-10-13 05:46] LABS: Alanine Aminotransferase 13 U/L (7-40); Alkaline Phosphatase 76 U/L (46-116); Anion Gap 6 (5-15); Aspartate Aminotransferase 17 U/L (13-40); BUN/Creatinine Ratio 30.6 (10.0-20.0); Blood Urea Nitrogen 33 mg/dL (9-23); Calcium 9.7 mg/dL (8.5-10.1); Carbon Dioxide 26 mmol/L (20-30); Chloride 105 mmol/L (98-107); Glucose 182 mg/dL (74-106); Sodium 137 mmol/L (136-145)
[2023-10-13 05:47] LABS: Albumin 4.2 g/dL (3.2-4.8); Bilirubin, Total 0.6 mg/dL (0.2-1.0); Total Protein 6.5 g/dL (5.7-8.2)
[2023-10-13] MEDS: InsuLIN REG 1unit/0.01ml Soln (100units/ml) SC SCH (05:47)
[2023-10-13 08:00] VITALS: PULSE 65
[2023-10-13 08:40] LABS: CRP High Sensitivity 0.14 mg/dL (<1.0)
[2023-10-13 09:00] VITALS: BP 143/74; PULSE 80; RESP 20; TEMP 97.9; O2SAT 99
[2023-10-13 09:10] LABS: Magnesium 2.1 mg/dL (1.6-2.6)
[2023-10-13 09:19] LABS: % Iron Saturation 10.5 % (20-55)
[2023-10-13 09:22] LABS: Ferritin 90.1 ng/mL (22-322); Folate (Folic Acid) > 24.00 ng/mL (>5.38)
[2023-10-13] MEDS: PANTOPRAZOLE 40 MG/10 ML VIAL INJ IV SCH (10:40)
[2023-10-13] MEDS: FUROSEMIDE 40 MG TAB PO SCH (10:40)
[2023-10-13] MEDS: LISINOPRIL 20 MG TAB PO SCH (10:40)
[2023-10-13 13:00] VITALS: BP 123/51; PULSE 62; RESP 18; TEMP 97.9; O2SAT 99
[2023-10-13] MEDS ORDERED: CEPH250C PO (14:31)
[2023-10-13 16:57] VITALS: BP 122/78; PULSE 55; RESP 18; TEMP 97.9; O2SAT 98
== END 2023-10-13 17:16 | disposition home or self-care (01) | DRG 351 ==
LOC: SUR 10:44 → TELE 18:27 → TELE-WESTW 20:10
PROVIDERS: ADMIT Internal Medicine; ATTEND Internal Medicine
PROC: 0YQ60ZZ Repair Left Inguinal Region, Open Approach (ICD-10-PCS; principal; 2023-10-12 16:29)
DX: K40.30 Unilateral inguinal hernia, with obstruction, without gangrene, not specified as recurrent (principal); I50.32 Chronic diastolic (congestive) heart failure; M86.60 Other chronic osteomyelitis, unspecified site; E11.51 Type 2 diabetes mellitus with diabetic peripheral angiopathy without gangrene; E11.69 Type 2 diabetes mellitus with other specified complication; I11.0 Hypertensive heart disease with heart failure; E78.5 Hyperlipidemia, unspecified; I48.91 Unspecified atrial fibrillation; Z87.891 Personal history of nicotine dependence
CPT/HCPCS: 36415; 80053; 80061; 81001; 82306; 82607; 82728; 82746; 82962; 83036; 83540; 83550; 83735; 83880; 84443; 85025; 85610; 85730; 86141; 86850; 86900; 86901; 87077; 87186; 87205; C9113; G0378; J0131; J1100; J1815; J1885; J2001; J2405; J2704; J3490

== ENCOUNTER → 2023-11-13 | Outpatient (CLI) | payer OTHER ==
[~2023-11-13] MED LIST changes: +CEPH250C PO
== END | disposition home or self-care (01) ==
LOC: LAB 13:32
PROVIDERS: ATTEND Internal Medicine
DX: L03.116 Cellulitis of left lower limb (principal)
CPT/HCPCS: 87077; 87186; 87205

== ENCOUNTER → 2023-11-13 | Outpatient (CLI) | payer OTHER ==
[2023-11-13 12:18] LABS: Erythrocyte Sedimentation Rate 85 mm/hr (0-20)
== END | disposition home or self-care (01) ==
LOC: LAB 10:44
PROVIDERS: ATTEND Internal Medicine
DX: L03.116 Cellulitis of left lower limb (principal)
CPT/HCPCS: 36415; 85652; 86141

== ENCOUNTER 2023-11-27 09:52 | Inpatient (IN) | payer OTHER ==
[~2023-11-27] VITALS: Ht 180.3 cm; Wt 89.1 kg
[2023-11-27] MEDS: levoFLOXacin 500MG 100 ML IV ONE (11:38)
[2023-11-27 11:52] LABS: Basophils # (auto) 0.1 10 ^3/uL (0-0.2); Basophils % (auto) 0.8 % (0.0-2.0); Eosinophils # (auto) 0.2 10 ^3/uL (0-0.8); Eosinophils % (auto) 3.2 % (0.0-7.0); Hematocrit 34.1 % (41.0-53.0); Hemoglobin 11.1 g/dL (13.5-17.5); Lymphocytes # (auto) 1.4 10 ^3/uL (0.4-5.4); Lymphocytes % (auto) 19.9 % (10.0-50.0); Mean Corpuscular Hemoglobin 31.6 pg (28.0-32.0); Mean Corpuscular Hgb Conc. 32.6 g/dL (32.0-36.0); Mean Corpuscular Volume 97.2 fL (80.0-100.0); Monocytes # (auto) 0.6 10 ^3/uL (0-1.3); Monocytes % (auto) 8.7 % (0.0-12.0); Neutrophils # (auto) 4.8 10 ^3/uL (1.6-8.6); Neutrophils % (auto) 67.4 % (37.0-80.0); Nucleated Red Blood Cells % 0.1 %; Red Blood Cells 3.51 10^6/uL (4.5-5.90); White Blood Cell 7.1 10^3/uL (4.4-10.8)
[2023-11-27 11:58] LABS: Albumin 4.7 g/dL (3.2-4.8); Alkaline Phosphatase 75 U/L (46-116); Anion Gap 6 (5-15); Aspartate Aminotransferase 23 U/L (13-40); BUN/Creatinine Ratio 23.5 (10.0-20.0); Bilirubin, Total 0.6 mg/dL (0.2-1.0); Blood Urea Nitrogen 50 mg/dL (9-23); Calcium 10.7 mg/dL (8.5-10.1); Carbon Dioxide 25 mmol/L (20-30); Chloride 104 mmol/L (98-107); Glucose 100 mg/dL (74-106); Potassium 4.9 mmol/L (3.5-5.1); Sodium 135 mmol/L (136-145); Total Protein 7.9 g/dL (5.7-8.2)
[2023-11-27 12:00] LABS: Alanine Aminotransferase < 9 U/L (7-40)
[2023-11-27 12:29] VITALS: PULSE 84; RESP 18; O2SAT 97
[2023-11-27] MEDS: SODIUM CHLORIDE 0.9% 1,000 ML IV SCH (12:45)
[2023-11-27] MEDS ORDERED: HYDROcodone-ACET 5/325MG TAB PO PRN (12:45)
[2023-11-27] MEDS ORDERED: NITROGLYCERIN 0.4 MG SL TAB SL PRN (12:45)
[2023-11-27] MEDS ORDERED: MORPHINE SULFATE INJ 2 MG/ml SYRG IV PRN (12:45)
[2023-11-27 12:47] LABS: INR 1.03 (0.9-1.15); Prothrombin Time 10.9 sec (9.3-11.8)
[2023-11-27] MEDS: CLINDAMYCIN 600MG IV 50 ML IV ONE (13:18)
[2023-11-27] MEDS: ACETAMINOPHEN 650 MG RECT SUPP PR SCH (14:00)
[2023-11-27] MEDS: CLINDAMYCIN 600MG IV 50 ML IV SCH (14:18)
[2023-11-27] MEDS ORDERED: VANCOMYCIN PER PHARMACY 0 MG IV SCH (14:45)
[2023-11-27 16:06] LABS: Urine Bacteria None Seen /hpf (None Seen)
[2023-11-27] MEDS: VANCOMYCIN 1GM/200ML 200 ML IV ONE (16:13)
[2023-11-27 16:15] LABS: Urine Blood Negative /uL (Negative); Urine Budding Yeast OCCASIONAL /hpf (None Seen); Urine Clarity Clear (Clear); Urine Color Light-Yellow (Yellow); Urine Protein, UAD Negative (Negative); Urine Specific Gravity 1.012 (1.001-1.035); Urine Urobilinogen Normal (Negative); Urine WBC <1 /hpf (0 - 3); Urine pH 7.5 (5.0-9.0)
[2023-11-27 16:25] LABS: Protein, Urine 13.3 mg/dL (0.0-11.9)
[2023-11-27 16:27] LABS: Creatinine, Urine 43.74 mg/dL (30.0-125.0)
[2023-11-27] MEDS: cefTRIAXone 2GM/50ML D5W 50 ML IV ONE (17:53)
[2023-11-27] MEDS: HEPARIN SODIUM (PORCINE) 5000 UNITS/ML 1ML VIAL SC SCH (19:47)
[2023-11-27 21:00] VITALS: BP 112/87; PULSE 80; RESP 20; TEMP 97.4; O2SAT 97
[2023-11-27] MEDS: ASCORBIC ACID 500 MG TAB PO SCH (22:00)
[2023-11-28] VITALS (7 sets, daily range): BP systolic 112–128; BP diastolic 52–77; PULSE 73–121; RESP 18–20; TEMP 97.6–98.7; O2SAT 96–98
[2023-11-28] MEDS: HEPARIN SODIUM (PORCINE) 5000 UNITS/ML 1ML VIAL SC SCH (06:17)
[2023-11-28 06:39] LABS: Basophils # (auto) 0 10 ^3/uL (0-0.2); Basophils % (auto) 0.7 % (0.0-2.0); Eosinophils # (auto) 0.3 10 ^3/uL (0-0.8); Eosinophils % (auto) 5.8 % (0.0-7.0); Hematocrit 29.3 % (41.0-53.0); Hemoglobin 9.8 g/dL (13.5-17.5); Lymphocytes % (auto) 20.1 % (10.0-50.0); Mean Corpuscular Hemoglobin 32.5 pg (28.0-32.0); Mean Corpuscular Hgb Conc. 33.4 g/dL (32.0-36.0); Mean Corpuscular Volume 97.3 fL (80.0-100.0); Monocytes # (auto) 0.6 10 ^3/uL (0-1.3); Monocytes % (auto) 12.1 % (0.0-12.0); Neutrophils % (auto) 61.3 % (37.0-80.0); Red Blood Cells 3.01 10^6/uL (4.5-5.90); Red Cell Distribution Width 12.9 % (11.8-14.3); White Blood Cell 4.9 10^3/uL (4.4-10.8)
[2023-11-28 07:13] LABS: Albumin 3.9 g/dL (3.2-4.8); Alkaline Phosphatase 61 U/L (46-116); Anion Gap 7 (5-15); Aspartate Aminotransferase 18 U/L (13-40); BUN/Creatinine Ratio 22.4 (10.0-20.0); Bilirubin, Total 0.3 mg/dL (0.2-1.0); Blood Urea Nitrogen 46 mg/dL (9-23); Carbon Dioxide 22 mmol/L (20-30); Chloride 108 mmol/L (98-107); Glucose 80 mg/dL (74-106); Potassium 5.5 mmol/L (3.5-5.1); Sodium 137 mmol/L (136-145); Total Protein 6.6 g/dL (5.7-8.2)
[2023-11-28 07:19] LABS: Alanine Aminotransferase < 9 U/L (7-40)
[2023-11-28] MEDS: cefTRIAXone 2GM/50ML D5W 50 ML IV SCH (09:12)
[2023-11-28] MEDS: ZINC SULFATE 220mg CAP or TAB PO SCH (09:13)
[2023-11-28] MEDS: MULTIPLE VITAMIN TAB PO SCH (09:13)
[2023-11-28] MEDS: FUROSEMIDE 40 MG TAB PO SCH (09:15)
[2023-11-28] MEDS ORDERED: levoFLOXacin 250MG 50 ML IV SCH (10:00)
[2023-11-28] MEDS: SODIUM ZIRCONIUM CYCL 10 GM PAK PO SCH (12:32)
[2023-11-28] MEDS: TAMSULOSIN HYDROCHLORIDE 0.4 MG CAP PO SCH (17:41)
[2023-11-28] MEDS: VANCOMYCIN 1GM/200ML 200 ML IV ONE (18:41)
[2023-11-28] MEDS ORDERED: DOCUSATE SOD 100 MG CAP PO PRN (21:00)
[2023-11-28] MEDS: DOCUSATE SOD 100 MG CAP PO SCH (21:39)
[2023-11-28] MEDS: DAKINS QUARTER STR 0.125% (NaHypochlorite) 473 ML TOPICAL SOL TOP SCH (23:07)
[2023-11-28] MEDS: ACETAMINOPHEN 325 MG TAB PO PRN (23:07)
[2023-11-29] VITALS (9 sets, daily range): BP systolic 89–126; BP diastolic 49–69; PULSE 57–106; RESP 17–20; TEMP 97.4–98.3; O2SAT 72–100
[2023-11-29 07:19] LABS: Basophils # (auto) 0 10 ^3/uL (0-0.2); Basophils % (auto) 0.7 % (0.0-2.0); Eosinophils # (auto) 0.4 10 ^3/uL (0-0.8); Eosinophils % (auto) 9.3 % (0.0-7.0); Hematocrit 28.7 % (41.0-53.0); Hemoglobin 9.6 g/dL (13.5-17.5); Lymphocytes % (auto) 25.3 % (10.0-50.0); Mean Corpuscular Hemoglobin 32.7 pg (28.0-32.0); Mean Corpuscular Hgb Conc. 33.6 g/dL (32.0-36.0); Mean Corpuscular Volume 97.5 fL (80.0-100.0); Monocytes # (auto) 0.5 10 ^3/uL (0-1.3); Monocytes % (auto) 12.3 % (0.0-12.0); Neutrophils # (auto) 2.1 10 ^3/uL (1.6-8.6); Neutrophils % (auto) 52.4 % (37.0-80.0); Nucleated Red Blood Cells % 0.1 %; Red Blood Cells 2.94 10^6/uL (4.5-5.90); Red Cell Distribution Width 13.1 % (11.8-14.3)
[2023-11-29 07:36] LABS: Albumin 3.7 g/dL (3.2-4.8); Alkaline Phosphatase 57 U/L (46-116); Anion Gap 7 (5-15); Aspartate Aminotransferase 16 U/L (13-40); BUN/Creatinine Ratio 24.4 (10.0-20.0); Bilirubin, Total 0.4 mg/dL (0.2-1.0); Blood Urea Nitrogen 39 mg/dL (9-23); Calcium 9.7 mg/dL (8.5-10.1); Carbon Dioxide 21 mmol/L (20-30); Chloride 110 mmol/L (98-107); Glucose 84 mg/dL (74-106); Potassium 4.6 mmol/L (3.5-5.1); Sodium 138 mmol/L (136-145); Total Protein 6.3 g/dL (5.7-8.2)
[2023-11-29 07:42] LABS: Alanine Aminotransferase < 9 U/L (7-40)
[2023-11-29] MEDS: LIDOCAINE 1% (LOCAL ANESTH.) PF 5ml SDV ID ONE (14:55)
[2023-11-29] MEDS: VANCOMYCIN 1GM/200ML 200 ML IV ONE (18:37)
[2023-11-29] MEDS: SODIUM CHLOR 0.9% PF (SALINE LOCK) 10ML VIAL/SYR IV SCH (21:38)
[2023-11-30] VITALS (7 sets, daily range): BP systolic 114–149; BP diastolic 58–77; PULSE 68–109; RESP 16–20; TEMP 97.4–97.8; O2SAT 96–100
[2023-11-30 07:14] LABS: Alkaline Phosphatase 58 U/L (46-116); Anion Gap 9 (5-15); Aspartate Aminotransferase 17 U/L (13-40); BUN/Creatinine Ratio 22.2 (10.0-20.0); Bilirubin, Total 0.4 mg/dL (0.2-1.0); Calcium 9.7 mg/dL (8.5-10.1); Carbon Dioxide 20 mmol/L (20-30); Chloride 110 mmol/L (98-107); Glucose 89 mg/dL (74-106); Potassium 4.3 mmol/L (3.5-5.1); Sodium 139 mmol/L (136-145); Total Protein 6.4 g/dL (5.7-8.2)
[2023-11-30 07:16] LABS: Alanine Aminotransferase < 9 U/L (7-40); Blood Urea Nitrogen 26 mg/dL (9-23)
[2023-11-30 07:17] LABS: Albumin 3.9 g/dL (3.2-4.8)
[2023-11-30 13:17] LABS: % Iron Saturation 37.4 % (20-55)
[2023-11-30] MEDS ORDERED: VANCOMYCIN PER PHARMACY 0 MG IV SCH (13:45)
[2023-11-30] MEDS: ENOXAPARIN SOD 100 MG/1 ML SYRINGE SC SCH (17:04)
[2023-11-30] MEDS: VANCOMYCIN 1GM/200ML 200 ML IV SCH (18:34)
[2023-11-30] MEDS: METOPROLOL TARTRATE 25 MG TAB PO SCH (19:57)
[2023-11-30] MEDS: ATORVASTATIN 20 MG TAB PO SCH (21:23)
[2023-12-01] VITALS (11 sets, daily range): BP systolic 96–138; BP diastolic 50–88; PULSE 67–126; RESP 16–23; TEMP 97.1–98.5; O2SAT 96–100
[2023-12-01 06:19] LABS: Basophils # (auto) 0 10 ^3/uL (0-0.2); Basophils % (auto) 0.7 % (0.0-2.0); Eosinophils # (auto) 0.4 10 ^3/uL (0-0.8); Eosinophils % (auto) 9.3 % (0.0-7.0); Hematocrit 29.7 % (41.0-53.0); Hemoglobin 9.8 g/dL (13.5-17.5); Lymphocytes % (auto) 23.1 % (10.0-50.0); Mean Corpuscular Volume 96.9 fL (80.0-100.0); Monocytes # (auto) 0.6 10 ^3/uL (0-1.3); Monocytes % (auto) 13.1 % (0.0-12.0); Neutrophils # (auto) 2.3 10 ^3/uL (1.6-8.6); Neutrophils % (auto) 53.8 % (37.0-80.0); Red Blood Cells 3.06 10^6/uL (4.5-5.90); Red Cell Distribution Width 13.1 % (11.8-14.3); White Blood Cell 4.3 10^3/uL (4.4-10.8)
[2023-12-01 06:37] LABS: Alanine Aminotransferase 11 U/L (7-40); Albumin 3.8 g/dL (3.2-4.8); Alkaline Phosphatase 62 U/L (46-116); Anion Gap 8 (5-15); Aspartate Aminotransferase 14 U/L (13-40); BUN/Creatinine Ratio 22.3 (10.0-20.0); Bilirubin, Total 0.4 mg/dL (0.2-1.0); Blood Urea Nitrogen 25 mg/dL (9-23); Calcium 9.7 mg/dL (8.5-10.1); Carbon Dioxide 21 mmol/L (20-30); Chloride 111 mmol/L (98-107); Glucose 94 mg/dL (74-106); Potassium 4.3 mmol/L (3.5-5.1); Sodium 140 mmol/L (136-145); Total Protein 6.6 g/dL (5.7-8.2)
[2023-12-01 06:48] LABS: Magnesium 1.8 mg/dL (1.6-2.6)
[2023-12-01] MEDS: IODIXANOL 320MG/ML 100ML BTL IV ONE (10:08)
[2023-12-01] MEDS: LIDOCAINE 2%HCL (LOCAL ANESTH.) INJ 20ML MDV ONE (10:08)
[2023-12-01] MEDS: fentaNYL CITRATE 100 MCG/2 ML VL ONE (10:14)
[2023-12-01] MEDS: ANGIOMAX 250 MG VIAL IV ONE (10:14)
[2023-12-01] MEDS: MIDAZOLAM HCL 2MG/2ML 2ml VIAL (1mg/ml) ONE (10:15)
[2023-12-01] MEDS: SODIUM CHL 0.9% 0 ML ONE (10:15)
[2023-12-01] MEDS: ASPirin 81 mg TAB PO SCH (12:54)
[2023-12-01] MEDS: LISINOPRIL 5 MG TAB PO SCH (12:55)
[2023-12-01] MEDS: AMIODARONE BOLUS KIT 100 ML IV ONE (13:47)
[2023-12-01] MEDS: AMIODARONE 450mg/250ml AE 250 ML IV SCH ×2 (14:00→16:30)
[2023-12-01] MEDS: SODIUM CHLORIDE 0.9% 500 ML IV ONE (16:30)
[2023-12-01] MEDS ORDERED: AMIODARONE 450mg/250ml AE 250 ML IV SCH (19:45)
[2023-12-02] VITALS (9 sets, daily range): BP systolic 97–145; BP diastolic 53–79; PULSE 53–101; RESP 16–21; TEMP 97.2–98.3; O2SAT 94–100
[2023-12-02 08:57] LABS: Basophils # (auto) 0 10 ^3/uL (0-0.2); Basophils % (auto) 0.9 % (0.0-2.0); Eosinophils # (auto) 0.4 10 ^3/uL (0-0.8); Eosinophils % (auto) 8.2 % (0.0-7.0); Hematocrit 27.7 % (41.0-53.0); Hemoglobin 9.1 g/dL (13.5-17.5); Lymphocytes # (auto) 0.9 10 ^3/uL (0.4-5.4); Lymphocytes % (auto) 18.2 % (10.0-50.0); Mean Corpuscular Hemoglobin 32.1 pg (28.0-32.0); Mean Corpuscular Hgb Conc. 32.7 g/dL (32.0-36.0); Mean Corpuscular Volume 97.9 fL (80.0-100.0); Monocytes # (auto) 0.7 10 ^3/uL (0-1.3); Monocytes % (auto) 12.8 % (0.0-12.0); Neutrophils % (auto) 59.9 % (37.0-80.0); Nucleated Red Blood Cells % 0.2 %; Red Blood Cells 2.83 10^6/uL (4.5-5.90); Red Cell Distribution Width 13.6 % (11.8-14.3); White Blood Cell 5.1 10^3/uL (4.4-10.8)
[2023-12-02 09:36] LABS: Alanine Aminotransferase 17 U/L (7-40); Alkaline Phosphatase 64 U/L (46-116); Calcium 9.3 mg/dL (8.5-10.1); Carbon Dioxide 20 mmol/L (20-30); Chloride 109 mmol/L (98-107); Glucose 111 mg/dL (74-106); Potassium 4.3 mmol/L (3.5-5.1)
[2023-12-02 09:37] LABS: Anion Gap 9 (5-15); Aspartate Aminotransferase 22 U/L (13-40); BUN/Creatinine Ratio 25.4 (10.0-20.0); Blood Urea Nitrogen 30 mg/dL (9-23); Sodium 138 mmol/L (136-145)
[2023-12-02 09:38] LABS: Albumin 3.7 g/dL (3.2-4.8)
[2023-12-02 09:39] LABS: Bilirubin, Total 0.4 mg/dL (0.2-1.0); Total Protein 6.2 g/dL (5.7-8.2)
[2023-12-02] MEDS ORDERED: DexAMETHasone SOD PHOS 10MG/1ML VIAL INJ ONE (12:31)
[2023-12-02] MEDS ORDERED: LIDOCAINE 1% INJ PF 5ML AMP ONE (12:31)
[2023-12-02] MEDS ORDERED: GLYCOPYRROLATE 0.2 MG/ML 1ML VIAL ONE (12:31)
[2023-12-02] MEDS ORDERED: KETOROLAC TROMETH 30 MG/ML 1ML VIAL ONE (12:31)
[2023-12-02] MEDS ORDERED: KETAMINE 50mg/ML 1ml syringe ONE (12:31)
[2023-12-02] MEDS ORDERED: PROPOFOL 10 MG/ML 20 ML IV ONE ×2 (12:31→14:10)
[2023-12-02] MEDS ORDERED: ONDANSETRON HCL 4 MG/2 ML VIAL ONE (12:31)
[2023-12-02] MEDS ORDERED: ePHEDrine SULFATE 50 MG/ML AMP IV PRN (14:30)
[2023-12-02] MEDS ORDERED: NALOXONE HCL 0.4 MG/ML VIAL IV PRN (14:30)
[2023-12-02] MEDS ORDERED: ONDANSETRON HCL 4 MG/2 ML VIAL IV PRN (14:30)
[2023-12-02] MEDS ORDERED: FLUMAZENIL 0.1 MG/ML INJ 10ML MDV IV PRN (14:30)
[2023-12-02] MEDS ORDERED: LABETALOL HCL 5 MG/ML 4ML SYRINGE IV PRN (14:30)
[2023-12-02] MEDS ORDERED: fentaNYL CITRATE 100 MCG/2 ML VL IV PRN (14:30)
[2023-12-02] MEDS ORDERED: hydrALAZINE HCL 20 MG/ML VL IV PRN (14:30)
[2023-12-02] MEDS ORDERED: HYDROmorphone HCL 2 MG/ML VL/or syr IV PRN (14:30)
[2023-12-02] MEDS: ceFAZolin 2 GM/D5W50ml 50 ML IV ONE (17:04)
[2023-12-02] MEDS: AMIODARONE HCL 200 MG TAB PO SCH (21:19)
[2023-12-02] MEDS: VANCOMYCIN 1GM/200ML 200 ML IV SCH (22:50)
[2023-12-03] VITALS (7 sets, daily range): BP systolic 118–142; BP diastolic 72–89; PULSE 62–90; RESP 14–18; TEMP 97.7–98.4; O2SAT 94–99
[2023-12-03 06:38] LABS: Basophils # (auto) 0 10 ^3/uL (0-0.2); Basophils % (auto) 0.4 % (0.0-2.0); Eosinophils # (auto) 0 10 ^3/uL (0-0.8); Eosinophils % (auto) 0.1 % (0.0-7.0); Hematocrit 27.2 % (41.0-53.0); Lymphocytes # (auto) 0.7 10 ^3/uL (0.4-5.4); Lymphocytes % (auto) 14.4 % (10.0-50.0); Mean Corpuscular Hemoglobin 32.1 pg (28.0-32.0); Mean Corpuscular Hgb Conc. 33.1 g/dL (32.0-36.0); Monocytes # (auto) 0.5 10 ^3/uL (0-1.3); Monocytes % (auto) 11.2 % (0.0-12.0); Neutrophils # (auto) 3.4 10 ^3/uL (1.6-8.6); Neutrophils % (auto) 73.9 % (37.0-80.0); Red Blood Cells 2.81 10^6/uL (4.5-5.90); Red Cell Distribution Width 13.2 % (11.8-14.3); White Blood Cell 4.6 10^3/uL (4.4-10.8)
[2023-12-03 06:40] LABS: Anion Gap 8 (5-15); Carbon Dioxide 22 mmol/L (20-30); Chloride 107 mmol/L (98-107); Potassium 4.5 mmol/L (3.5-5.1); Sodium 137 mmol/L (136-145)
[2023-12-03 06:41] LABS: Calcium 9.5 mg/dL (8.5-10.1)
[2023-12-03 06:46] LABS: BUN/Creatinine Ratio 27.9 (10.0-20.0); Blood Urea Nitrogen 36 mg/dL (9-23); Magnesium 1.8 mg/dL (1.6-2.6)
[2023-12-03 06:47] LABS: CRP High Sensitivity 0.03 mg/dL (<1.0)
[2023-12-03 06:51] LABS: Glucose 255 mg/dL (74-106)
[2023-12-03 11:07] LABS: Vitamin D 25-Hydroxy 59 ng/mL (.); Vitamin D-2 25-Hydroxy <1.0 ng/mL (.); Vitamin D-3 25-Hydroxy 58 ng/mL (.)
[2023-12-03] MEDS: VANCOMYCIN 1GM/200ML 200 ML IV SCH (18:00)
[2023-12-03] MEDS ORDERED: ASPI-325 PO (18:06)
[2023-12-03] MEDS ORDERED: MET25T PO (18:06)
== END 2023-12-03 18:28 | disposition home health service (06) | DRG 853 ==
LOC: ER 09:52 → TELE 12:41 → TELE-E-ADS 15:15 → TELE-EAST 18:29
PROVIDERS: ADMIT Internal Medicine; ATTEND Emergency Medicine
PROC: 02HV33Z Insertion of Infusion Device into Superior Vena Cava, Percutaneous Approach (ICD-10-PCS; 2023-11-29)
PROC: B548ZZA Ultrasonography of Superior Vena Cava, Guidance (ICD-10-PCS; 2023-11-29)
PROC: B41DYZZ Fluoroscopy of Aorta and Bilateral Lower Extremity Arteries using Other Contrast (ICD-10-PCS; 2023-12-01)
PROC: 0JBR0ZZ Excision of Left Foot Subcutaneous Tissue and Fascia, Open Approach (ICD-10-PCS; principal; 2023-12-02 13:48)
DX: A41.9 Sepsis, unspecified organism (principal); I50.43 Acute on chronic combined systolic (congestive) and diastolic (congestive) heart failure; N17.0 Acute kidney failure with tubular necrosis; M86.172 Other acute osteomyelitis, left ankle and foot; I13.0 Hypertensive heart and chronic kidney disease with heart failure and stage 1 through stage 4 chronic kidney disease, or unspecified chronic kidney disease; L02.612 Cutaneous abscess of left foot; I48.19 Other persistent atrial fibrillation; E11.65 Type 2 diabetes mellitus with hyperglycemia; N18.2 Chronic kidney disease, stage 2 (mild); E11.51 Type 2 diabetes mellitus with diabetic peripheral angiopathy without gangrene; E11.621 Type 2 diabetes mellitus with foot ulcer; E87.5 Hyperkalemia; J44.9 Chronic obstructive pulmonary disease, unspecified; E78.5 Hyperlipidemia, unspecified; L97.529 Non-pressure chronic ulcer of other part of left foot with unspecified severity; E11.69 Type 2 diabetes mellitus with other specified complication; D64.9 Anemia, unspecified; E11.22 Type 2 diabetes mellitus with diabetic chronic kidney disease; E11.610 Type 2 diabetes mellitus with diabetic neuropathic arthropathy; Z79.2 Long term (current) use of antibiotics; Z79.899 Other long term (current) drug therapy; Z83.3 Family history of diabetes mellitus; Z82.49 Family history of ischemic heart disease and other diseases of the circulatory system; Z87.891 Personal history of nicotine dependence; Z91.199 Patient's noncompliance with other medical treatment and regimen due to unspecified reason
CPT/HCPCS: 36415; 36569; 71045; 73630; 73721; 75630; 76775; 80048; 80053; 80202; 81001; 82306; 82570; 82728; 83540; 83550; 83605; 83735; 83930; 83970; 84100; 84156; 84300; 85025; 85610; 86141; 87040; 87070; 87075; 87205; 93005; 93306; 93925; 96365; 99152; C1769; C1894; G0378; J1100; J1885; J1956; J2250; J2405; J2704; J3490; Q9967

== ENCOUNTER → 2023-12-07 | Outpatient (CLI) | payer OTHER ==
[~2023-12-07] MED LIST changes: -ACE650RS PR; +ASPI-325 PO; -CEPH250C PO; +MET25T PO; -POTA-264 PO
== END | disposition home or self-care (01) ==
LOC: LAB 10:51
PROVIDERS: ATTEND Internal Medicine
DX: E11.621 Type 2 diabetes mellitus with foot ulcer (principal)
CPT/HCPCS: 87077; 87186; 87205

== ENCOUNTER → 2023-12-07 | Outpatient (CLI) | payer OTHER ==
[2023-12-07 14:40] LABS: Basophils # (auto) 0 10 ^3/uL (0-0.2); Basophils % (auto) 0.5 % (0.0-2.0); Eosinophils # (auto) 0.5 10 ^3/uL (0-0.8); Eosinophils % (auto) 7.7 % (0.0-7.0); Hematocrit 28.3 % (41.0-53.0); Hemoglobin 9.2 g/dL (13.5-17.5); Lymphocytes # (auto) 1.1 10 ^3/uL (0.4-5.4); Lymphocytes % (auto) 16.6 % (10.0-50.0); Mean Corpuscular Hemoglobin 31.5 pg (28.0-32.0); Mean Corpuscular Hgb Conc. 32.4 g/dL (32.0-36.0); Mean Corpuscular Volume 97.4 fL (80.0-100.0); Monocytes # (auto) 0.9 10 ^3/uL (0-1.3); Monocytes % (auto) 14.2 % (0.0-12.0); Neutrophils # (auto) 3.9 10 ^3/uL (1.6-8.6); Nucleated Red Blood Cells % 0.1 %; Red Cell Distribution Width 14.1 % (11.8-14.3); White Blood Cell 6.4 10^3/uL (4.4-10.8)
[2023-12-07 14:47] LABS: Chloride 103 mmol/L (98-107); Potassium 4.8 mmol/L (3.5-5.1); Sodium 136 mmol/L (136-145)
[2023-12-07 14:48] LABS: Anion Gap 5 (5-15); Carbon Dioxide 28 mmol/L (20-30)
[2023-12-07 14:49] LABS: Calcium 9.8 mg/dL (8.5-10.1)
[2023-12-07 14:53] LABS: BUN/Creatinine Ratio 38.2 (10.0-20.0); Blood Urea Nitrogen 58 mg/dL (9-23)
[2023-12-07 14:54] LABS: CRP High Sensitivity 0.07 mg/dL (<1.0)
[2023-12-07 14:55] LABS: Glucose 144 mg/dL (74-106)
== END | disposition home or self-care (01) ==
LOC: LAB 14:25
PROVIDERS: ATTEND Internal Medicine
DX: E11.621 Type 2 diabetes mellitus with foot ulcer (principal)
CPT/HCPCS: 36415; 80048; 80202; 85025; 86141

== ENCOUNTER → 2023-12-10 | Outpatient (CLI) | payer OTHER ==
[2023-12-10 14:36] LABS: Chloride 103 mmol/L (98-107); Potassium 4.9 mmol/L (3.5-5.1); Sodium 137 mmol/L (136-145)
[2023-12-10 14:37] LABS: Anion Gap 5 (5-15); Calcium 9.8 mg/dL (8.5-10.1); Carbon Dioxide 29 mmol/L (20-30)
[2023-12-10 14:42] LABS: BUN/Creatinine Ratio 34.1 (10.0-20.0); Blood Urea Nitrogen 47 mg/dL (9-23); Glucose 158 mg/dL (74-106)
== END | disposition home or self-care (01) ==
LOC: LAB 13:12
PROVIDERS: ATTEND Internal Medicine
DX: E10.621 Type 1 diabetes mellitus with foot ulcer (principal)
CPT/HCPCS: 36415; 80048; 80202

== ENCOUNTER → 2023-12-14 | Outpatient (CLI) | payer OTHER ==
[2023-12-14 12:45] LABS: Basophils # (auto) 0.1 10 ^3/uL (0-0.2); Basophils % (auto) 1.3 % (0.0-2.0); Eosinophils # (auto) 0.3 10 ^3/uL (0-0.8); Eosinophils % (auto) 4.7 % (0.0-7.0); Hematocrit 27.8 % (41.0-53.0); Hemoglobin 9.4 g/dL (13.5-17.5); Lymphocytes # (auto) 0.9 10 ^3/uL (0.4-5.4); Lymphocytes % (auto) 14.8 % (10.0-50.0); Mean Corpuscular Hemoglobin 32.4 pg (28.0-32.0); Mean Corpuscular Hgb Conc. 33.9 g/dL (32.0-36.0); Mean Corpuscular Volume 95.7 fL (80.0-100.0); Monocytes # (auto) 0.8 10 ^3/uL (0-1.3); Monocytes % (auto) 14.1 % (0.0-12.0); Neutrophils # (auto) 3.9 10 ^3/uL (1.6-8.6); Neutrophils % (auto) 65.1 % (37.0-80.0); Red Blood Cells 2.91 10^6/uL (4.5-5.90); Red Cell Distribution Width 14.2 % (11.8-14.3); White Blood Cell 5.9 10^3/uL (4.4-10.8)
[2023-12-14 13:03] LABS: Alanine Aminotransferase 15 U/L (7-40); Albumin 4.3 g/dL (3.2-4.8); Alkaline Phosphatase 83 U/L (46-116); Anion Gap 3 (5-15); Aspartate Aminotransferase 14 U/L (13-40); BUN/Creatinine Ratio 41.2 (10.0-20.0); Bilirubin, Total 0.4 mg/dL (0.2-1.0); Blood Urea Nitrogen 49 mg/dL (9-23); Carbon Dioxide 29 mmol/L (20-30); Chloride 102 mmol/L (98-107); Glucose 97 mg/dL (74-106); Potassium 4.6 mmol/L (3.5-5.1); Sodium 134 mmol/L (136-145); Total Protein 6.9 g/dL (5.7-8.2)
[2023-12-14 13:19] LABS: Erythrocyte Sedimentation Rate 63 mm/hr (0-20)
== END | disposition home or self-care (01) ==
LOC: LAB 12:35
PROVIDERS: ATTEND Internal Medicine
DX: M19.072 Primary osteoarthritis, left ankle and foot (principal)
CPT/HCPCS: 36415; 80053; 80202; 85025; 85652

== ENCOUNTER → 2023-12-28 | Outpatient (CLI) | payer OTHER ==
[2023-12-28 12:10] LABS: Basophils # (auto) 0 10 ^3/uL (0-0.2); Basophils % (auto) 0.8 % (0.0-2.0); Eosinophils # (auto) 0.2 10 ^3/uL (0-0.8); Eosinophils % (auto) 4.3 % (0.0-7.0); Hematocrit 28.6 % (41.0-53.0); Hemoglobin 9.8 g/dL (13.5-17.5); Lymphocytes # (auto) 0.8 10 ^3/uL (0.4-5.4); Lymphocytes % (auto) 15.7 % (10.0-50.0); Mean Corpuscular Hgb Conc. 34.3 g/dL (32.0-36.0); Mean Corpuscular Volume 96.4 fL (80.0-100.0); Monocytes # (auto) 0.9 10 ^3/uL (0-1.3); Neutrophils # (auto) 2.9 10 ^3/uL (1.6-8.6); Neutrophils % (auto) 60.9 % (37.0-80.0); Red Blood Cells 2.96 10^6/uL (4.5-5.90); White Blood Cell 4.8 10^3/uL (4.4-10.8)
[2023-12-28 12:14] LABS: Monocytes % (auto) 18.3 % (0.0-12.0)
[2023-12-28 12:31] LABS: Alanine Aminotransferase 16 U/L (7-40); Albumin 4.1 g/dL (3.2-4.8); Alkaline Phosphatase 81 U/L (46-116); Anion Gap 6 (5-15); Aspartate Aminotransferase 12 U/L (13-40); BUN/Creatinine Ratio 42.9 (10.0-20.0); Blood Urea Nitrogen 45 mg/dL (9-23); Calcium 9.8 mg/dL (8.5-10.1); Carbon Dioxide 30 mmol/L (20-30); Chloride 103 mmol/L (98-107); Glucose 88 mg/dL (74-106); Sodium 139 mmol/L (136-145)
[2023-12-28 12:32] LABS: Bilirubin, Total 0.3 mg/dL (0.2-1.0); Total Protein 6.8 g/dL (5.7-8.2)
[2023-12-28 12:57] LABS: Erythrocyte Sedimentation Rate 47 mm/hr (0-20)
== END | disposition home or self-care (01) ==
LOC: LAB 11:55
PROVIDERS: ATTEND Internal Medicine
DX: E11.621 Type 2 diabetes mellitus with foot ulcer (principal); I77.9 Disorder of arteries and arterioles, unspecified
CPT/HCPCS: 36415; 80053; 80202; 85025; 85652

== ENCOUNTER → 2024-01-04 | Outpatient (CLI) | payer OTHER ==
[2024-01-04 14:10] LABS: Basophils # (auto) 0 10 ^3/uL (0-0.2); Basophils % (auto) 0.9 % (0.0-2.0); Eosinophils # (auto) 0.3 10 ^3/uL (0-0.8); Eosinophils % (auto) 4.7 % (0.0-7.0); Hematocrit 29.4 % (41.0-53.0); Hemoglobin 9.9 g/dL (13.5-17.5); Lymphocytes # (auto) 0.9 10 ^3/uL (0.4-5.4); Lymphocytes % (auto) 15.6 % (10.0-50.0); Mean Corpuscular Hemoglobin 32.2 pg (28.0-32.0); Mean Corpuscular Hgb Conc. 33.6 g/dL (32.0-36.0); Mean Corpuscular Volume 95.8 fL (80.0-100.0); Monocytes # (auto) 0.7 10 ^3/uL (0-1.3); Monocytes % (auto) 12.4 % (0.0-12.0); Neutrophils # (auto) 3.7 10 ^3/uL (1.6-8.6); Neutrophils % (auto) 66.4 % (37.0-80.0); Nucleated Red Blood Cells % 0.1 %; Red Blood Cells 3.07 10^6/uL (4.5-5.90); Red Cell Distribution Width 14.1 % (11.8-14.3); White Blood Cell 5.5 10^3/uL (4.4-10.8)
[2024-01-04 14:15] LABS: Alanine Aminotransferase 14 U/L (7-40); Albumin 4.2 g/dL (3.2-4.8); Alkaline Phosphatase 84 U/L (46-116); Anion Gap 6 (5-15); Aspartate Aminotransferase 15 U/L (13-40); BUN/Creatinine Ratio 42.9 (10.0-20.0); Blood Urea Nitrogen 48 mg/dL (9-23); Calcium 9.6 mg/dL (8.5-10.1); Carbon Dioxide 28 mmol/L (20-30); Chloride 102 mmol/L (98-107); Potassium 4.3 mmol/L (3.5-5.1); Sodium 136 mmol/L (136-145)
[2024-01-04 14:16] LABS: Bilirubin, Total 0.4 mg/dL (0.2-1.0); Total Protein 6.7 g/dL (5.7-8.2)
[2024-01-04 14:17] LABS: Glucose 208 mg/dL (74-106)
[2024-01-04 15:09] LABS: Erythrocyte Sedimentation Rate 43 mm/hr (0-20)
== END | disposition home or self-care (01) ==
LOC: LAB 13:40
PROVIDERS: ATTEND Internal Medicine
DX: Z79.899 Other long term (current) drug therapy (principal); Z00.00 Encounter for general adult medical examination without abnormal findings
CPT/HCPCS: 36415; 80053; 80202; 85025; 85652

== ENCOUNTER → 2024-01-11 | Outpatient (CLI) | payer OTHER ==
[2024-01-11 14:09] LABS: Basophils # (auto) 0.1 10 ^3/uL (0-0.2); Eosinophils # (auto) 0.3 10 ^3/uL (0-0.8); Eosinophils % (auto) 5.3 % (0.0-7.0); Hematocrit 30.1 % (41.0-53.0); Lymphocytes # (auto) 0.8 10 ^3/uL (0.4-5.4); Lymphocytes % (auto) 15.3 % (10.0-50.0); Mean Corpuscular Hemoglobin 31.9 pg (28.0-32.0); Mean Corpuscular Hgb Conc. 33.4 g/dL (32.0-36.0); Mean Corpuscular Volume 95.7 fL (80.0-100.0); Monocytes # (auto) 0.6 10 ^3/uL (0-1.3); Monocytes % (auto) 10.7 % (0.0-12.0); Neutrophils # (auto) 3.7 10 ^3/uL (1.6-8.6); Neutrophils % (auto) 67.7 % (37.0-80.0); Red Blood Cells 3.14 10^6/uL (4.5-5.90); Red Cell Distribution Width 13.8 % (11.8-14.3); White Blood Cell 5.5 10^3/uL (4.4-10.8)
[2024-01-11 14:56] LABS: Erythrocyte Sedimentation Rate 46 mm/hr (0-20)
[2024-01-11 15:19] LABS: Anion Gap 5 (5-15); Calcium 9.7 mg/dL (8.5-10.1); Carbon Dioxide 28 mmol/L (20-30); Chloride 103 mmol/L (98-107); Potassium 4.4 mmol/L (3.5-5.1); Sodium 136 mmol/L (136-145)
[2024-01-11 15:24] LABS: Glucose 160 mg/dL (74-106)
[2024-01-11 15:25] LABS: BUN/Creatinine Ratio 41.4 (10.0-20.0); Blood Urea Nitrogen 48 mg/dL (9-23)
== END | disposition home or self-care (01) ==
LOC: LAB 13:45
PROVIDERS: ATTEND Internal Medicine
DX: I10 Essential (primary) hypertension (principal); E78.5 Hyperlipidemia, unspecified; N28.9 Disorder of kidney and ureter, unspecified
CPT/HCPCS: 36415; 80048; 80202; 85025; 85652

== ENCOUNTER → 2024-01-18 | Outpatient (CLI) | payer OTHER ==
[2024-01-18 13:27] LABS: Basophils # (auto) 0 10 ^3/uL (0-0.2); Basophils % (auto) 0.5 % (0.0-2.0); Eosinophils # (auto) 0.4 10 ^3/uL (0-0.8); Eosinophils % (auto) 6.1 % (0.0-7.0); Hematocrit 28.8 % (41.0-53.0); Hemoglobin 9.5 g/dL (13.5-17.5); Lymphocytes # (auto) 0.9 10 ^3/uL (0.4-5.4); Lymphocytes % (auto) 15.5 % (10.0-50.0); Mean Corpuscular Hemoglobin 31.2 pg (28.0-32.0); Mean Corpuscular Hgb Conc. 32.9 g/dL (32.0-36.0); Monocytes # (auto) 0.9 10 ^3/uL (0-1.3); Monocytes % (auto) 14.4 % (0.0-12.0); Neutrophils # (auto) 3.8 10 ^3/uL (1.6-8.6); Neutrophils % (auto) 63.5 % (37.0-80.0); Red Blood Cells 3.03 10^6/uL (4.5-5.90); Red Cell Distribution Width 13.6 % (11.8-14.3); White Blood Cell 6.1 10^3/uL (4.4-10.8)
[2024-01-18 14:06] LABS: Alanine Aminotransferase 16 U/L (7-40); Albumin 4.1 g/dL (3.2-4.8); Alkaline Phosphatase 79 U/L (46-116); Anion Gap 6 (5-15); Aspartate Aminotransferase 14 U/L (13-40); BUN/Creatinine Ratio 38.4 (10.0-20.0); Bilirubin, Total 0.4 mg/dL (0.2-1.0); Blood Urea Nitrogen 43 mg/dL (9-23); Calcium 9.6 mg/dL (8.5-10.1); Carbon Dioxide 27 mmol/L (20-30); Chloride 102 mmol/L (98-107); Glucose 91 mg/dL (74-106); Potassium 4.2 mmol/L (3.5-5.1); Sodium 135 mmol/L (136-145); Total Protein 6.5 g/dL (5.7-8.2)
[2024-01-18 14:52] LABS: Erythrocyte Sedimentation Rate 61 mm/hr (0-20)
== END | disposition home or self-care (01) ==
LOC: LAB 12:48
PROVIDERS: ATTEND Internal Medicine
DX: E11.621 Type 2 diabetes mellitus with foot ulcer (principal)
CPT/HCPCS: 36415; 80053; 80202; 85025; 85652

== ENCOUNTER → 2024-01-20 | Outpatient (CLI) | payer OTHER | END | disposition home or self-care (01) | LOC: LAB 11:29 | PROVIDERS: ATTEND Podiatrist | DX: Z87.39 Personal history of other diseases of the musculoskeletal system and connective tissue (principal) ==

== ENCOUNTER → 2024-01-25 | Outpatient (CLI) | payer OTHER ==
[2024-01-25 13:04] LABS: Basophils # (auto) 0.1 10 ^3/uL (0-0.2); Basophils % (auto) 0.9 % (0.0-2.0); Eosinophils # (auto) 0.3 10 ^3/uL (0-0.8); Eosinophils % (auto) 5.4 % (0.0-7.0); Hematocrit 28.3 % (41.0-53.0); Hemoglobin 9.6 g/dL (13.5-17.5); Lymphocytes # (auto) 1.1 10 ^3/uL (0.4-5.4); Lymphocytes % (auto) 18.2 % (10.0-50.0); Mean Corpuscular Hemoglobin 31.9 pg (28.0-32.0); Mean Corpuscular Hgb Conc. 33.8 g/dL (32.0-36.0); Mean Corpuscular Volume 94.4 fL (80.0-100.0); Monocytes # (auto) 0.9 10 ^3/uL (0-1.3); Neutrophils # (auto) 3.6 10 ^3/uL (1.6-8.6); Neutrophils % (auto) 60.5 % (37.0-80.0); Nucleated Red Blood Cells % 0.1 %; Red Cell Distribution Width 13.7 % (11.8-14.3); White Blood Cell 5.9 10^3/uL (4.4-10.8)
[2024-01-25 13:25] LABS: Alanine Aminotransferase 21 U/L (7-40); Albumin 4.1 g/dL (3.2-4.8); Alkaline Phosphatase 83 U/L (46-116); Anion Gap 7 (5-15); Aspartate Aminotransferase 16 U/L (13-40); BUN/Creatinine Ratio 46.6 (10.0-20.0); Blood Urea Nitrogen 55 mg/dL (9-23); Calcium 9.6 mg/dL (8.5-10.1); Carbon Dioxide 27 mmol/L (20-30); Chloride 105 mmol/L (98-107); Glucose 98 mg/dL (74-106); Potassium 4.3 mmol/L (3.5-5.1); Sodium 139 mmol/L (136-145)
[2024-01-25 13:27] LABS: Bilirubin, Total 0.4 mg/dL (0.2-1.0); Total Protein 6.4 g/dL (5.7-8.2)
[2024-01-25 13:50] LABS: Erythrocyte Sedimentation Rate 62 mm/hr (0-20)
== END | disposition home or self-care (01) ==
LOC: LAB 12:52
PROVIDERS: ATTEND Internal Medicine
DX: E11.621 Type 2 diabetes mellitus with foot ulcer (principal)
CPT/HCPCS: 36415; 80053; 80202; 85025; 85652

== ENCOUNTER → 2024-02-02 | Outpatient (CLI) | payer OTHER ==
[2024-02-02 11:45] LABS: Basophils # (auto) 0 10 ^3/uL (0-0.2); Basophils % (auto) 0.6 % (0.0-2.0); Eosinophils # (auto) 0.4 10 ^3/uL (0-0.8); Eosinophils % (auto) 6.6 % (0.0-7.0); Hematocrit 29.2 % (41.0-53.0); Hemoglobin 9.9 g/dL (13.5-17.5); Lymphocytes % (auto) 15.9 % (10.0-50.0); Mean Corpuscular Hemoglobin 31.8 pg (28.0-32.0); Mean Corpuscular Hgb Conc. 33.9 g/dL (32.0-36.0); Mean Corpuscular Volume 93.8 fL (80.0-100.0); Monocytes # (auto) 0.9 10 ^3/uL (0-1.3); Monocytes % (auto) 14.5 % (0.0-12.0); Neutrophils # (auto) 3.8 10 ^3/uL (1.6-8.6); Neutrophils % (auto) 62.4 % (37.0-80.0); Red Blood Cells 3.12 10^6/uL (4.5-5.90); Red Cell Distribution Width 13.3 % (11.8-14.3); White Blood Cell 6.1 10^3/uL (4.4-10.8)
[2024-02-02 11:50] LABS: Chloride 104 mmol/L (98-107); Potassium 5.1 mmol/L (3.5-5.1); Sodium 138 mmol/L (136-145)
[2024-02-02 11:51] LABS: Anion Gap 5 (5-15); Calcium 10.1 mg/dL (8.5-10.1); Carbon Dioxide 29 mmol/L (20-30)
[2024-02-02 11:56] LABS: BUN/Creatinine Ratio 39.5 (10.0-20.0); Blood Urea Nitrogen 49 mg/dL (9-23); Glucose 124 mg/dL (74-106)
== END | disposition home or self-care (01) ==
LOC: LAB 11:04
PROVIDERS: ATTEND Internal Medicine
DX: E11.621 Type 2 diabetes mellitus with foot ulcer (principal)
CPT/HCPCS: 36415; 80048; 80202; 85025

== ENCOUNTER → 2024-02-17 | Outpatient (CLI) | payer OTHER ==
[2024-02-17 11:36] LABS: Alanine Aminotransferase 12 U/L (7-40); Albumin 4.2 g/dL (3.2-4.8); Alkaline Phosphatase 89 U/L (46-116); Anion Gap 6 (5-15); Aspartate Aminotransferase 12 U/L (13-40); BUN/Creatinine Ratio 30.5 (10.0-20.0); Bilirubin, Total 0.6 mg/dL (0.2-1.0); Blood Urea Nitrogen 32 mg/dL (9-23); Calcium 9.8 mg/dL (8.7-10.4); Carbon Dioxide 28 mmol/L (20-30); Chloride 101 mmol/L (98-107); Glucose 129 mg/dL (74-106); Potassium 3.9 mmol/L (3.5-5.1); Sodium 135 mmol/L (136-145)
== END | disposition home or self-care (01) ==
LOC: LAB 10:28
PROVIDERS: ATTEND Internal Medicine
DX: I73.9 Peripheral vascular disease, unspecified (principal); E11.621 Type 2 diabetes mellitus with foot ulcer
CPT/HCPCS: 36415; 80053; 83036

== ENCOUNTER → 2024-08-02 | Outpatient (CLI) | payer OTHER ==
[2024-08-02 09:29] LABS: INR 1.19 (0.9-1.15); Partial Thromboplastin Time 29.1 SEC (24.5-34.5); Prothrombin Time 12.5 sec (9.3-11.8)
[2024-08-02 09:34] LABS: Basophils # (auto) 0 10 ^3/uL (0-0.2); Basophils % (auto) 0.8 % (0.0-2.0); Eosinophils # (auto) 0.2 10 ^3/uL (0-0.8); Eosinophils % (auto) 2.9 % (0.0-7.0); Hematocrit 31.4 % (41.0-53.0); Hemoglobin 10.7 g/dL (13.5-17.5); Lymphocytes # (auto) 1.2 10 ^3/uL (0.4-5.4); Lymphocytes % (auto) 22.6 % (10.0-50.0); Mean Corpuscular Volume 93.9 fL (80.0-100.0); Monocytes # (auto) 0.6 10 ^3/uL (0-1.3); Monocytes % (auto) 10.8 % (0.0-12.0); Neutrophils # (auto) 3.3 10 ^3/uL (1.6-8.6); Neutrophils % (auto) 62.9 % (37.0-80.0); Nucleated Red Blood Cells % 0.2 %; Platelet Count (auto) 201 10^3/uL (140-450); Red Blood Cells 3.35 10^6/uL (4.5-5.90); Red Cell Distribution Width 15.2 % (11.8-14.3); White Blood Cell 5.3 10^3/uL (4.4-10.8)
[2024-08-02 09:39] LABS: Creatinine, Urine 39.4 mg/dL (30.0-125.0)
[2024-08-02 09:44] LABS: Alanine Aminotransferase 10 U/L (7-40); Albumin 4.4 g/dL (3.2-4.8); Alkaline Phosphatase 84 U/L (46-116); Anion Gap 9 (5-15); Aspartate Aminotransferase 16 U/L (13-40); BUN/Creatinine Ratio 26.7 (10.0-20.0); Bilirubin, Total 0.6 mg/dL (0.2-1.0); Carbon Dioxide 28 mmol/L (20-31); Chloride 103 mmol/L (98-107); Cholesterol 124 mg/dL (< 200); Glucose 106 mg/dL (74-106); HDL Cholesterol 58 mg/dL (40-59); LDL Cholesterol 54 mg/dL (< 100); Potassium 4.6 mmol/L (3.5-5.1); Sodium 140 mmol/L (136-145); Total Protein 7.3 g/dL (5.7-8.2); Triglycerides 92 mg/dL (< 150)
[2024-08-02 09:52] LABS: Blood Urea Nitrogen 28 mg/dL (9-23); Calcium 10.8 mg/dL (8.7-10.4)
[2024-08-02 10:09] LABS: Erythrocyte Sedimentation Rate 41 mm/hr (0-20)
== END | disposition home or self-care (01) ==
LOC: LAB 08:15
PROVIDERS: ATTEND Internal Medicine
DX: S91.302A Unspecified open wound, left foot, initial encounter (principal); E11.621 Type 2 diabetes mellitus with foot ulcer; I73.9 Peripheral vascular disease, unspecified; X58.XXXA Exposure to other specified factors, initial encounter; Y93.89 Activity, other specified; Y92.89 Other specified places as the place of occurrence of the external cause; Y99.8 Other external cause status
CPT/HCPCS: 36415; 80053; 80061; 82043; 82570; 83036; 84443; 85025; 85610; 85652; 85730

== ENCOUNTER → 2024-08-22 | Outpatient (CLI) | payer OTHER ==
[2024-08-22 17:32] LABS: Erythrocyte Sedimentation Rate 24 mm/hr (0-20)
== END | disposition home or self-care (01) ==
LOC: LAB 15:34
PROVIDERS: ATTEND Internal Medicine
DX: S91.302D Unspecified open wound, left foot, subsequent encounter (principal); X58.XXXD Exposure to other specified factors, subsequent encounter
CPT/HCPCS: 36415; 85652

== ENCOUNTER → 2024-09-14 | Outpatient (CLI) | payer OTHER ==
[2024-09-14 13:47] LABS: Basophils # (auto) 0 10 ^3/uL (0-0.2); Basophils % (auto) 0.4 % (0.0-2.0); Eosinophils # (auto) 0.2 10 ^3/uL (0-0.8); Eosinophils % (auto) 2.4 % (0.0-7.0); Hematocrit 28.8 % (41.0-53.0); Lymphocytes # (auto) 1.3 10 ^3/uL (0.4-5.4); Lymphocytes % (auto) 18.6 % (10.0-50.0); Mean Corpuscular Hemoglobin 33.1 pg (28.0-32.0); Mean Corpuscular Hgb Conc. 34.9 g/dL (32.0-36.0); Mean Corpuscular Volume 94.9 fL (80.0-100.0); Monocytes # (auto) 0.7 10 ^3/uL (0-1.3); Monocytes % (auto) 9.9 % (0.0-12.0); Neutrophils # (auto) 4.7 10 ^3/uL (1.6-8.6); Neutrophils % (auto) 68.7 % (37.0-80.0); Platelet Count (auto) 170 10^3/uL (140-450); Red Blood Cells 3.03 10^6/uL (4.5-5.90); Red Cell Distribution Width 14.7 % (11.8-14.3); White Blood Cell 6.8 10^3/uL (4.4-10.8)
[2024-09-14 14:35] LABS: Erythrocyte Sedimentation Rate 30 mm/hr (0-20)
== END | disposition home or self-care (01) ==
LOC: LAB 13:34
PROVIDERS: ATTEND Internal Medicine
DX: S91.302D Unspecified open wound, left foot, subsequent encounter (principal); E11.621 Type 2 diabetes mellitus with foot ulcer; X58.XXXD Exposure to other specified factors, subsequent encounter
CPT/HCPCS: 36415; 85025; 85652

== ENCOUNTER → 2024-09-15 | Outpatient (CLI) | payer OTHER | END | disposition home or self-care (01) | LOC: LAB 06:07 | PROVIDERS: ATTEND Internal Medicine | DX: S91.302D Unspecified open wound, left foot, subsequent encounter (principal); X58.XXXD Exposure to other specified factors, subsequent encounter | CPT/HCPCS: 87205 ==

== ENCOUNTER → 2025-02-21 | Outpatient (CLI) | payer OTHER ==
[2025-02-21 10:37] LABS: Alkaline Phosphatase 77 U/L (46-116); Anion Gap 8 (5-15); BUN/Creatinine Ratio 31.6 (10.0-20.0); Carbon Dioxide 28 mmol/L (20-31); Chloride 105 mmol/L (98-107); Glucose 94 mg/dL (74-106); Potassium 5.0 mmol/L (3.5-5.1); Sodium 141 mmol/L (136-145); Total Protein 7.3 g/dL (5.7-8.2); Triglycerides 88 mg/dL (< 150)
[2025-02-21 10:38] LABS: Alanine Aminotransferase 9 U/L (7-40); Albumin 4.6 g/dL (3.2-4.8); Blood Urea Nitrogen 31 mg/dL (9-23); Calcium 10.7 mg/dL (8.7-10.4); Cholesterol 176 mg/dL (< 200); HDL Cholesterol 60 mg/dL (40-59)
[2025-02-21 10:39] LABS: Bilirubin, Total 0.4 mg/dL (0.2-1.0)
[2025-02-21 10:42] LABS: Hematocrit 33.8 % (41.0-53.0); Hemoglobin 11.6 g/dL (13.5-17.5); Mean Corpuscular Hemoglobin 32.3 pg (28.0-32.0); Mean Corpuscular Volume 94.5 fL (80.0-100.0); Nucleated Red Blood Cells % 0.1 %
[2025-02-21 11:39] LABS: Microalb/Creat Ratio, Urine 48.0
== END | disposition home or self-care (01) ==
LOC: LAB 08:51
PROVIDERS: ATTEND Internal Medicine
DX: E11.9 Type 2 diabetes mellitus without complications (principal); E78.5 Hyperlipidemia, unspecified; Z12.11 Encounter for screening for malignant neoplasm of colon
CPT/HCPCS: 36415; 80053; 80061; 82043; 82270; 82570; 83036; 84153; 85025

== ENCOUNTER 2025-02-28 10:17 | Outpatient (CLI) | payer OTHER ==
[~2025-02-28] VITALS: Ht 180.3 cm; Wt 81.6 kg
[2025-02-28] MEDS: REGADENOSON 0.4 MG/5 ML SYRG IV ONE ×2 (12:05→12:21)
--- NOTE | 2025-03-01 16:21 | DVHSR ---
APPROVED REPORT Exam: Nuclear Stress Test Indication: cardiac clearance BMI: 0 Medical History Medical History: HTN, DM2, nonischemic cardiomyopathy, atrial fibrillation, former smoker Stress Test Details Stress Test: Pharmacologic stress testing performed using 0.4 mg of regadenoson per 5 mL given IV ov er 10 seconds. HR Resting HR: 96 bpmMax Heart Rate (APMHR): 149.061817 bpm Max HR Achieved: 150 bpmTarget HR (85% APMHR): 126.493193 bpm % of APMHR: 100.67 Recovery HR: 108 bpm BP Resting BP: 153/72 mmHg Recovery BP: 149/90 mmHg ECG Resting ECG: Atrial Fibrillation Clinical Reason for Termination: Completed protocol Stress ECG Conclusion inferior wall ischemia ecg shows PVCs and st depressions diffusely on stress portion lvef 55% NM EXAM: Myocardial Perfusion REST/STRESS Imaging Protocol: Rest Tc-99m/Stress Tc-99m 1 day Resting Data Rest SPECT myocardial perfusion imaging was performed in supine position 60 minutes following the int ravenous injection of 9.4 mCi of Tc-99m Sestamibi. Time of rest injection: 11:00 Date: 02/28/2025 Time of rest imagin:00 Date: 02/28/2025 Administration Route: IV Administration Site: Left Arm Pharmacologic Stress Pharmacologic stress test was performed by injecting Regadenoson 0.4 mg IV push followed by the intra venous injection of 31.5 mCi of Tc-99m Sestamibi. Time of stress injection: 12:16 Date: 02/28/2025 Time of stress imagin:16 Date: 02/28/2025 Administration Route: IV Administration Site: Left Arm Gated Stress SPECT was performed 60 minutes after stress injection. The images were gated to evaluate regional wall motion and calculate left ventricular ejection fracti on. Stress only was performed in the Supine position. Nuclear Conclusion Nuclear Findings: positive for ischemia inferior wall ischemia ecg shows PVCs and st depressions diffusely on stress portion lvef 55%
== END 2025-02-28 17:00 | disposition home or self-care (01) ==
LOC: XYW 10:17
PROVIDERS: ATTEND Internal Medicine
DX: Z01.810 Encounter for preprocedural cardiovascular examination (principal); I99.8 Other disorder of circulatory system; I49.3 Ventricular premature depolarization; I48.91 Unspecified atrial fibrillation; M77.52 Other enthesopathy of left foot and ankle; I11.0 Hypertensive heart disease with heart failure; I50.9 Heart failure, unspecified; E11.9 Type 2 diabetes mellitus without complications; Z87.891 Personal history of nicotine dependence
CPT/HCPCS: 78452; 93017; A9500; J2785

== ENCOUNTER 2025-04-27 10:35 | Inpatient (IN) | payer OTHER ==
[~2025-04-27] VITALS: Ht 180.3 cm; Wt 83.7 kg
--- NOTE | 2025-04-27 10:58 | ED.PDOC ---
SOB-HPI HPI Comments This is a 69 year old male presenting to the ED with chief complaint of SOB. Patient reports that he has been experiencing SOB with associated cough w/ clear sputum, nasal congestion, and fever since Thursday. Patient relays that he may have had contact with his sick granddaughter. Patient denies any chest pain, chills, headache, hemoptysis, nausea, vomiting, or abdominal pain. Chief Complaint: Shortness of Breath Time Seen by MD: 10:56 Primary Care Provider: Kimberly Nava notes: Nurses Notes, Medications, Allergies Information Source: Patient Mode of Arrival: Ambulatory Severity: Moderate Timing: Days Duration: Since onset Context: At Rest PE Risk Factors: None History of: CHF Prehospital treatment: None Modifying Factors: Nothing Associated Signs and Symptoms: Fever, Cough, Nasal Congestion If cough with SOB: Productive, Clear Past Medical History PAST MEDICAL HISTORY: AFIB, CHF, CVA, DM, High Lipids, HTN Surgical History: Appendectomy, Hernia Repair Surgical History (Other): Lt foot surgery Family History Family History: Reviewed,noncontributory to illness, No family hx of HTN, Family hx of heart dax Social History Smoker: Non-Smoker Alcohol: Occasionally Drugs: Denies Drug Use Lives In: Home Constitutional: reports: fever; denies: chills, diaphoresis, fatigue, malaise, sweats, weakness, others EENTM: reports: nose congestion; denies: blurred vision, double vision, ear bleeding, ear discharge, ear drainage, ear pain, ear ringing, eye pain, eye redness, hearing loss, mouth pain, mouth swelling, nasal discharge, nose bleeding, nose pain, photophobia, tearing, throat pain, throat swelling, voice changes, others Respiratory: reports: cough, shortness of breath; denies: hemoptysis, orthopnea, SOB at rest, SOB with excertion, stridor, wheezing, others Cardiovascular: denies: chest pain, dizzy spells, diaphoresis, Dyspnea on exertion, edema, irregular heart beat, left arm pain, lightheadedness, palpitations, PND, syncope, others Gastrointestinal: denies: abdomen distended, abdominal pain, blood streaked bowels, constipated, diarrhea, dysphagia, difficulty swallowing, hematemesis, melena, nausea, poor appetite, poor fluid intake, rectal bleeding, rectal pain, vomiting, others Genitourinary: denies: burning, dysuria, flank pain, frequency, hematuria, incontinence, penile discharge, penile sore, pain, testicle pain, testicle swelling, urgency, others Neurological: denies: dizziness, fainting, headache, left sided numbness, left sided weakness, numbness, paresthesia, pre-existing deficit, right sided numbness, right sided weakness, seizure, speech problems, tingling, tremors, w eakness, others Musculoskeletal: denies: back pain, gout, joint pain, joint swelling, muscle pain, muscle stiffness, neck pain, others Integumetry: denies: bruises, change in color, change in hair/nails, dryness, laceration, lesions, lumps, rash, wounds, others Allergic/Immunocompromised: denies: Difficulty Healing, Frequent Infections, Hives, Itching, others Hematologic/Lymphatic: denies: anemia, blood clots, easy bleeding, easy bruising, swollen glands, others Endocrine: denies: excessive hunger, excessive sweating, excessive thirst, excessive urination, flushing, intolerance to cold, intolerance to heat, unexplained weight gain, unexplained weight loss, others Psychiatric: denies: anxiety, bipolar disorder, depression, hopeless, panic disorder, schizophrenia, sleepless, suicidal, others All Other Systems: Reviewed and Negative Physical Exam General Appearance: Moderate Distress HEENT: Normal ENT Inspection, Pharynx Normal, TMs Normal Neck: Full Range of Motion, Non-Tender, Normal, Normal Inspection Respiratory: Chest Non-Tender, Decreased Breath Sounds, Lungs Clear, No Accessory Muscle Use Cardiovascular: No Edema, No JVD, No Murmur, No Gallop, Normal Peripheral Pulses, Regular Rate/Rhythm Breast Exam: Deferred Gastrointestinal: No Organomegaly, Non Tender, No Pulsatile Mass, Normal Bowel Sounds, Soft Genitalia: Deferred Pelvic: Deferred Rectal: Deferred Extremities: No calf tenderness, Normal capillary refill, Normal inspection, Normal range of motion, Non-tender, No pedal edema Musculoskeletal : Apperance: Normal Neurologic: Alert, high school librarian II-XII nml as Tested, No Motor Deficits, Normal Affect, Normal Mood, No Sensory Deficits Cerebellar Function: Normal Reflexes: Normal Skin: Dry, Normal Color, Warm Lymphatic: No Adenopathy EKG EKG : Pulse Rate (adult): 83 [place]: Normal Cardiac Rhythm: Afib Block: None Hypertrophy: None ST: Normal Was a procedure done? Was a procedure done?: No Differential Dx Differential Diagnosis: Bronchitis, CHF, Pneumonia X-Ray, Labs, Meds, VS Vital Signs Date Time Temp Pulse Resp B/P (MAP) Pulse Ox O2 Delivery O2 Flow Rate FiO2 04/27/25 12:01 98.2 97 17 118/74 (89) 100 98.2 04/27/25 10:58 83 04/27/25 10:45 83 04/27/25 10:36 97.7 70 20 116/65 97 97.7 Lab Test 04/27/25 11:37 Range/Units White Blood Count 6.8 4.4-10.8 10^3/uL Red Blood Count 3.48 L 4.5-5.90 10^6/uL Hemoglobin 10.8 L 13.5-17.5 g/dL Hematocrit 31.6 L 41.0-53.0 % Mean Corpuscular Volume 91.0 80.0-100.0 fL Mean Corpuscular Hemoglobin 31.1 28.0-32.0 pg Mean Corpuscular Hemoglobin Concent 34.2 32.0-36.0 g/dL Red Cell Distribution Width 14.0 11.8-14.3 % Platelet Count 188 140-450 10^3/uL Mean Platelet Volume 8.2 6.9-10.8 fL Neutrophils (%) (Auto) 73.9 37.0-80.0 % Lymphocytes (%) (Auto) 12.7 10.0-50.0 % Monocytes (%) (Auto) 13.1 H 0.0-12.0 % Eosinophils (%) (Auto) 0.2 0.0-7.0 % Basophils (%) (Auto) 0.1 0.0-2.0 % Neutrophils # (Auto) 5.0 1.6-8.6 10 ^3/uL Lymphocytes # (Auto) 0.9 0.4-5.4 10 ^3/uL Monocytes # (Auto) 0.9 0-1.3 10 ^3/uL Eosinophils # (Auto) 0 0-0.8 10 ^3/uL Basophils # (Auto) 0 0-0.2 10 ^3/uL Nucleated Red Blood Cells 0.1 % Lactic Acid Level 2.3 *H 0.4-2.0 mmol/L Troponin I High Sensitivity Pending B-Type Natriuretic Peptide 185.35 0-100 pg/mL Current Medications Medications (Trade) Dose Ordered Sig/Jose Route Start Time Stop Time Status Last Admin Methylprednisolone Sodium Succinate (Solu Medrol) 125 mg ONCE ONCE IV 04/27/25 11:00 04/27/25 11:01 DC 04/27/25 12:03 IV Hep-Lock was established The patient was given Solu-Medrol 125 mg IV push The lactic acid level is elevated at 2.3 The BNP is within limits Patient's CBC and chemistry panel are within normal limits The patient is being admitted with a diagnosis of acute respiratory distress The patient also has a diagnosis of pneumonitis The patient is being started on Levaquin after blood cultures were drawn The patient is being admitted Images Reviewed?: Images reviewed and evaluated by me Time of 1ST Reevaluation: 12:13 Reevaluation 1ST: Unchanged Patient Education/Counseling: Diagnosis, Treatment, Prognosis Family Education/Counseling: No Family Present SEPSIS Sepsis Screen Date sepsis recognized/suspect: Apr 27, 2025 Time Sepsis recognized/suspect: 1038 Recent Procedure: No On Antibiotic Therapy: No Respiratory Rate >20: No Heart Rate >90: No Temp<36 C (96.8 F) or >38.3 C: No SBP <90 or MAP <65 mmHG: No New Acute Mental Status Change: No Is the patient on CPAP, BIPAP,: No Physician Orders Troponin-I Hs (04/27/25 10:55) Urinalysis (04/27/25 10:55) Heplock Iv (04/27/25 10:55) Pulse Oximetry (04/27/25 10:55) Cad Designer Drafter (04/27/25 10:55) Blood Pressure (04/27/25 10:55) Chest Two Views Routine (04/27/25 10:55) Electrocardigram (04/27/25 10:55) Blood Culture (04/27/25 10:55) Covid19 Antigen Nae (04/27/25 ) Rapid Influenza A&B (04/27/25 10:55) Electrocardigram (04/27/25 11:55) Electrocardigram (04/27/25 13:55) Vital Signs Date Time Temp Pulse Resp B/P (MAP) Pulse Ox O2 Delivery O2 Flow Rate FiO2 04/27/25 12:01 98.2 97 17 118/74 (89) 100 98.2 04/27/25 10:58 83 04/27/25 10:45 83 04/27/25 10:36 97.7 70 20 116/65 97 97.7 Laboratory Tests Test 04/27/25 11:37 Lactic Acid Level 2.3 mmol/L (0.4-2.0) *H White Blood Count 6.8 10^3/uL (4.4-10.8) Medications Medications Dose Ordered Sig/Jose Route Start Time Stop Time Status Last Admin Dose Admin Methylprednisolone Sodium Succinate 125 mg ONCE ONCE IV 04/27/25 11:00 04/27/25 11:01 DC 04/27/25 12:03 Departure 1 Departure Time of Disposition: 12:13 Impression: Primary Impression: Acute respiratory failure Qualified Codes: J96.01 - Acute respiratory failure with hypoxia Additional Impressions: Pneumonitis Elevated lactic acid level Disposition: ADMITTED INPATIENT Admit to: Tele Condition: Fair Critical Care Note Critical Care Time?: Yes (35 min-critical care time only) Stability Stability form required: Yes Unstable for transfer: Telemetry monitoring (Telemetry monitoring required), ED Physician Assesment (Clinical assesment) Heart Score Heart Score: Heart Score Response (Comments) Value History Slightly Suspicious 0 EKG Normal 0 Age >65 2 Risk Factors >3 or Hx ASHD 2 Troponin Normal limit 0 Total 4 I personally scribed for EMILIANO FLOREZ MD ([email or web address]) on 04/27/25 at 10:58. Electronically submitted by Bryan Joiner ([email or web address]). EMILIANO FLOREZ MD Apr 27, 2025 10:58
--- NOTE | 2025-04-27 11:35 | DVH ---
XY CHEST TWO VIEWS ROUTINE CLINICAL HISTORY: cough COMPARISON: XY CHEST PORTABLE on DOS: 11/29/23, XY CHEST TWO VIEWS ROUTINE on DOS: 10/05/23, XY CHEST PO RTABLE on DOS: 11/26/22 TECHNIQUE: Frontal and lateral view of the chest was obtained FINDINGS: Lines and Tubes: None Lungs: No focal consolidation. Pleura: No effusion. No pneumothorax. Cardiomediastinal contours: Unremarkable. Atherosclerotic vascular calcifications of the thoracic ao rta are noted. Bones: No acute osseous abnormality. IMPRESSION: No acute cardiopulmonary disease.
[2025-04-27 11:52] LABS: Hematocrit 31.6 % (41.0-53.0); Hemoglobin 10.8 g/dL (13.5-17.5); Mean Corpuscular Hemoglobin 31.1 pg (28.0-32.0); Mean Corpuscular Volume 91.0 fL (80.0-100.0); Nucleated Red Blood Cells % 0.1 %
[2025-04-27] MEDS: methylPREDNISolone SOD SUCC 125 MG/2 ML VL IV ONE (12:03)
[2025-04-27 12:09] LABS: Lactic Acid w/Reflex 2.3 mmol/L (0.4-2.0)
[2025-04-27] MEDS ORDERED: ACETAMINOPHEN 325 MG TAB PO PRN (14:45)
[2025-04-27] MEDS ORDERED: DEXTROSE (50%) 50ML SYRG IV PRN (14:45)
[2025-04-27] MEDS ORDERED: ALBUTEROL SULF 2.5 MG/0.5ML(0.5%) NEB SOLN NEB PRN (14:45)
[2025-04-27] MEDS ORDERED: ONDANSETRON HCL 4 MG/2 ML VIAL IV PRN (14:45)
[2025-04-27 15:07] LABS: Chloride 102 mmol/L (98-107); Potassium 4.4 mmol/L (3.5-5.1); Sodium 138 mmol/L (136-145)
[2025-04-27 15:08] VITALS: BP 118/74; PULSE 97; RESP 17; TEMP 98.2; O2SAT 100
[2025-04-27 15:08] LABS: Anion Gap 15 (5-15); Carbon Dioxide 21 mmol/L (20-31)
[2025-04-27 15:09] LABS: Calcium 9.3 mg/dL (8.7-10.4)
[2025-04-27 15:14] LABS: BUN/Creatinine Ratio 24.1 (10.0-20.0); Blood Urea Nitrogen 28 mg/dL (9-23); Glucose 130 mg/dL (74-106)
--- NOTE | 2025-04-27 16:16 | DVHHP2 ---
History of Present Illness Reason for Visit: Shortness for breath History of Present Illness 69-year-old male presents for evaluation of shortness for breath. Patient reports a four day history of flu-like symptoms including generalized body aches, shortness for breath with a cough having clear sputum. She also reports having intermittent fever. Denies chest pain or palpitations. No other acute complaints reported. He Past Medical History CVA, diabetes mellitus, CHF, AFib, dyslipidemia, hypertension Past Surgical History Hernia repair, appendectomy, left foot surgery Family History Noncontributory Smoke: No ALCOHOL: occassional Lives: with Family Review of Systems Review of Systems Review of systems are currently negative otherwise addressed in HPI. Allergies: Coded Allergies: NO KNOWN ALLERGIES (Unverified , 09/09/17) Medications Current Medications Medications Dose Ordered Sig/Jose Route Start Time Stop Time Status Last Admin Dose Admin Albuterol 2.5 mg Q6HPRN PRN NEB 04/27/25 14:45 UNV Aspirin 81 mg DAILY PO 04/28/25 10:00 UNV Furosemide 40 mg DAILY PO 04/28/25 10:00 UNV Lisinopril 20 mg DAILY PO 04/28/25 10:00 UNV Metoprolol Tartrate 12.5 mg BID PO 04/27/25 22:00 UNV Atorvastatin Calcium 20 mg HS PO 04/27/25 22:00 UNV Tamsulosin HCl 0.4 mg QPM PO 04/27/25 18:00 UNV Patient Own Medication 20 mg DAILY PO 04/28/25 10:00 UNV Azithromycin 250 ml @ 125 mls/hr DAILY IV 04/28/25 10:00 UNV Ondansetron HCl 4 mg Q4HP PRN IV 04/27/25 14:45 UNV Acetaminophen 650 mg Q6HP PRN PO 04/27/25 14:45 UNV Diagnostic Test (Pha) 1 strip ACHS 04/27/25 17:00 UNV Insulin Human Regular ACHS SC 04/27/25 17:00 UNV Dextrose 50 ml UD PRN IV 04/27/25 14:45 UNV Exam Vital Signs Vital Signs Date Time Temp Pulse Resp B/P (MAP) Pulse Ox O2 Delivery O2 Flow Rate FiO2 04/27/25 15:54 94 Room Air* 0 21 04/27/25 15:53 100 17 120/73 (89) 04/27/25 15:08 98.2 98.2 Exam Gen: 69-year-old male in mild distress. Skin: Warm, dry, normal color and texture, no rash. HEENT: Normocephalic atraumatic, mucous membranes moist and pink. Neck: Cervical and supraclavicular nodes normal without enlargement, trachea is midline, thyroid gland is normal without masses. Pulmonary: Diminished breath sounds bilaterally. Cardiac: Regular rate and rhythm. No murmur Abdomen: Soft, nontender, nondistended, bowel sounds present all 4 quadrants, no guarding, no rigidity, no organomegaly. Extremities: No cyanosis, clubbing, no edema Neuro: Cranial nerves II through XII grossly intact, normal affect and speech, no focal motor deficits. Labs/Xrays ORDERING PHYSICIAN: EMILIANO FLOREZ MD PROCEDURE(s): CXR2 - CHEST TWO VIEWS ROUTINE REASON: coiugh ORDER NUMBER(s): [id number], ACCESSION NUMBER(s): [id number] XY CHEST TWO VIEWS ROUTINE CLINICAL HISTORY: cough COMPARISON: XY CHEST PORTABLE on DOS: 11/29/23, XY CHEST TWO VIEWS ROUTINE on DOS: 10/05/23, XY CHEST PORTABLE on DOS: 11/26/22 TECHNIQUE: Frontal and lateral view of the chest was obtained FINDINGS: Lines and Tubes: None Lungs: No focal consolidation. Pleura: No effusion. No pneumothorax. Cardiomediastinal contours: Unremarkable. Atherosclerotic vascular calcifications of the thoracic aorta are noted. Bones: No acute osseous abnormality. IMPRESSION: No acute cardiopulmonary disease. Labs Test 04/27/25 14:00 04/27/25 11:37 Range/Units Lactic Acid Level 1.4 0.4-2.0 mmol/L White Blood Count 6.8 4.4-10.8 10^3/uL Red Blood Count 3.48 L 4.5-5.90 10^6/uL Hemoglobin 10.8 L 13.5-17.5 g/dL Hematocrit 31.6 L 41.0-53.0 % Mean Corpuscular Volume 91.0 80.0-100.0 fL Mean Corpuscular Hemoglobin 31.1 28.0-32.0 pg Mean Corpuscular Hemoglobin Concent 34.2 32.0-36.0 g/dL Red Cell Distribution Width 14.0 11.8-14.3 % Platelet Count 188 140-450 10^3/uL Mean Platelet Volume 8.2 6.9-10.8 fL Neutrophils (%) (Auto) 73.9 37.0-80.0 % Lymphocytes (%) (Auto) 12.7 10.0-50.0 % Monocytes (%) (Auto) 13.1 H 0.0-12.0 % Eosinophils (%) (Auto) 0.2 0.0-7.0 % Basophils (%) (Auto) 0.1 0.0-2.0 % Neutrophils # (Auto) 5.0 1.6-8.6 10 ^3/uL Lymphocytes # (Auto) 0.9 0.4-5.4 10 ^3/uL Monocytes # (Auto) 0.9 0-1.3 10 ^3/uL Eosinophils # (Auto) 0 0-0.8 10 ^3/uL Basophils # (Auto) 0 0-0.2 10 ^3/uL Nucleated Red Blood Cells 0.1 % Sodium Level 138 136-145 mmol/L Potassium Level 4.4 3.5-5.1 mmol/L Chloride Level 102 98-107 mmol/L Carbon Dioxide Level 21 20-31 mmol/L Anion Gap 15 5-15 Blood Urea Nitrogen 28 H 9-23 mg/dL Creatinine 1.16 0.700-1.30 mg/dL Glomerular Filtration Rate Calc 67 >90 mL/min BUN/Creatinine Ratio 24.1 H 10.0-20.0 Serum Glucose 130 H 74-106 mg/dL Calcium Level 9.3 8.7-10.4 mg/dL Troponin I High Sensitivity 21 </=54 ng/L B-Type Natriuretic Peptide 185.35 0-100 pg/mL SEPSIS Sepsis Screen Date sepsis recognized/suspect: Apr 27, 2025 Time Sepsis recognized/suspect: 1038 Recent Procedure: No On Antibiotic Therapy: No Respiratory Rate >20: No Heart Rate >90: No Temp<36 C (96.8 F) or >38.3 C: No SBP <90 or MAP <65 mmHG: No New Acute Mental Status Change: No Is the patient on CPAP, BIPAP,: No Physician Orders Urinalysis (04/27/25 10:55) Heplock Iv (04/27/25 10:55) Pulse Oximetry (04/27/25 10:55) Information Security Engineer (04/27/25 10:55) Blood Pressure (04/27/25 10:55) Chest Two Views Routine (04/27/25 10:55) Electrocardigram (04/27/25 10:55) Blood Culture (04/27/25 10:55) Covid19 Antigen Nae (04/27/25 ) Rapid Influenza A&B (04/27/25 10:55) Electrocardigram (04/27/25 11:55) Electrocardigram (04/27/25 13:55) Albuterol Medneb (Ventolin Medneb) (04/27/25 14:45) Aspirin Tablet (04/28/25 10:00) Furosemide Tablet (Lasix Tablet) (04/28/25 10:00) Lisinopril Tablet (Zestril Tablet) (04/28/25 10:00) Metoprolol Tartrate Tablet (Lopressor Ta (04/27/25 22:00) Atorvastatin (Lipitor) (04/27/25 22:00) Tamsulosin Hydrochloride (Flomax) (04/27/25 18:00) (Nf) Xarelto (04/28/25 10:00) Admit (04/27/25 14:44) Ondansetron Hcl (Zofran) (04/27/25 14:45) Cardiac Diet-2gna,Lofat,Lochol (04/27/25 Dinner) Condition: Stable (04/27/25 14:44) Acetaminophen Tablet (Tylenol Tablet) (04/27/25 14:45) Bedrest With Bathroom Privileg (04/27/25 14:44) Glucose Blood (Accu-Chek Comfort Curve T (04/27/25 17:00) Insulin R (Human) (Insulin R) (04/27/25 17:00) Dextrose 50% Syringe (04/27/25 14:45) Azithromycin 500mg/ 250ml (Zithromax 50 (04/28/25 10:00) Vital Signs Date Time Temp Pulse Resp B/P (MAP) Pulse Ox O2 Delivery O2 Flow Rate FiO2 04/27/25 15:54 94 Room Air* 0 21 04/27/25 15:53 100 17 120/73 (89) 100 04/27/25 15:50 18 Room Air 0 04/27/25 15:08 98.2 97 17 118/74 100 21 98.2 04/27/25 12:01 98.2 97 17 118/74 (89) 100 98.2 04/27/25 10:58 83 04/27/25 10:45 83 04/27/25 10:36 97.7 70 20 116/65 97 97.7 Laboratory Tests Test 04/27/25 11:37 04/27/25 14:00 Lactic Acid Level 2.3 mmol/L (0.4-2.0) *H 1.4 mmol/L (0.4-2.0) White Blood Count 6.8 10^3/uL (4.4-10.8) Medications Medications Dose Ordered Sig/Jose Route Start Time Stop Time Status Last Admin Dose Admin Levofloxacin/ Dextrose 100 ml @ 100 mls/hr ONCE ONCE IV 04/27/25 12:15 04/27/25 13:14 DC 04/27/25 15:00 100 MLS/HR Methylprednisolone Sodium Succinate 125 mg ONCE ONCE IV 04/27/25 11:00 04/27/25 11:01 DC 04/27/25 12:03 125 MG Assessment/Plan Assessment/Plan Assessment Acute pneumonitis Acute respiratory distress Diabetes mellitus Hypertension Plan Admit the patient to Med surge to the hospitalist Azithromycin Med nebs Resume home medications Continue treatment per orders. Plan discussed with: Patient My Orders Orders - DAVON RICHARD AGACNP Procedure Category Date Status Time Albuterol Medneb PHA 04/27/25 Logged (Ventolin Medneb) 14:45 Aspirin Tablet PHA 04/28/25 Logged 10:00 Furosemide Tablet PHA 04/28/25 Logged (Lasix Tablet) 10:00 Lisinopril Tablet PHA 04/28/25 Logged (Zestril Tablet) 10:00 Metoprolol Tartrate PHA 04/27/25 Logged Tablet (Lopressor Ta 22:00 Atorvastatin (Lipitor) PHA 04/27/25 Logged 22:00 Tamsulosin PHA 04/27/25 Logged Hydrochloride (Flomax) 18:00 (Nf) Xarelto PHA 04/28/25 Logged 10:00 Admit ADMIT 04/27/25 Transmitted 14:44 Ondansetron Hcl PHA 04/27/25 Logged (Zofran) 14:45 Cardiac DIET 04/27/25 Transmitted Diet-2gna,Lofat,Lochol Dinner Condition: Stable RENITA 04/27/25 In Process 14:44 Acetaminophen Tablet PHA 04/27/25 Logged (Tylenol Tablet) 14:45 Bedrest With Bathroom RENITA 04/27/25 In Process Privileg 14:44 Glucose Blood PHA 04/27/25 Logged (Accu-Chek Comfort 17:00 Insulin R (Human) PHA 04/27/25 Logged (Insulin R) 17:00 Dextrose 50% Syringe PHA 04/27/25 Logged 14:45 Azithromycin 500mg/ PHA 04/28/25 Logged 250ml (Zithromax 50 10:00 Date of Service: Apr 27, 2025 Billing Provider: DAVON RICHARD Common Visit Codes: [id number] INP/OBS CARE (MOD) DAVON RICHARD Apr 27, 2025 16:16
[2025-04-27 16:27] VITALS: BP 124/66; PULSE 83; RESP 16; TEMP 97.8; O2SAT 100
[2025-04-27 16:36] VITALS: PULSE 83; RESP 16; O2SAT 100
[2025-04-27] MEDS: ACCU-CHEK COMFORT CURVE STRIP VI SCH (17:00)
[2025-04-27] MEDS: InsuLIN REG 1unit/0.01ml Soln (100units/ml) SC SCH (17:00)
[2025-04-27] MEDS: TAMSULOSIN HYDROCHLORIDE 0.4 MG CAP PO SCH (17:38)
[2025-04-27 20:00] VITALS: RESP 17; O2SAT 95
[2025-04-27 20:07] LABS: COVID19 ANTIGEN SOFIA FIA POSITIVE (NEGATIVE)
[2025-04-27 21:00] VITALS: BP 114/65; PULSE 93; RESP 17; TEMP 98; O2SAT 95
[2025-04-27 21:23] LABS: Urine Protein, UAD 1+ (Negative); Urine WBC Clumps PRESENT /hpf (None Seen)
[2025-04-27 21:30] VITALS: BP 124/65; PULSE 85; RESP 18; TEMP 98.7; O2SAT 98
[2025-04-27] MEDS: ATORVASTATIN 20 MG TAB PO SCH (22:47)
[2025-04-27] MEDS: METOPROLOL TARTRATE 25 MG TAB PO SCH (22:48)
[2025-04-28] VITALS (8 sets, daily range): BP systolic 88–143; BP diastolic 49–84; PULSE 62–98; RESP 16–19; TEMP 97.8–98.3; O2SAT 93–99
[2025-04-28] MEDS: AZITHROMYCIN 500MG/ 250ML 250 ML IV SCH (09:54)
[2025-04-28] MEDS: FUROSEMIDE 40 MG TAB PO SCH (09:55)
[2025-04-28] MEDS: LISINOPRIL 20 MG TAB PO SCH (09:56)
[2025-04-28] MEDS: RIVAROXABAN 20 MG TAB PO SCH (09:57)
--- NOTE | 2025-04-28 12:22 | ECG ---
[facility] Test Date: 2025-04-27 Test Time: 10:45:58 Pat Name: SAMUEL MENDOZA Department: Room: 0209 A Gender: M Driver Education Instructor: ANDREY : 1955 Requested By: EMILIANO FLOREZ Order Number: [id number] Reading MD: Kobe Trevizo Measurements Intervals [place] Rate: 83 P: 0 TX: 0 QRS: 53 QRSD: 106 T: 22 QT: 386 QTc: 454 Interpretive Statements Atrial fibrillation Electronically Signed On 04-28-2025 12:35:18 PDT by Kobe Trevizo Please click the below link to view image of tracing.
[2025-04-28] MEDS ORDERED: DOXYCYCLINE 100MG/100ML 100 ML IV SCH (15:00)
[2025-04-28] MEDS ORDERED: REMDESIVIR PER PHARMACY 0 ML IV SCH (15:00)
[2025-04-28] MEDS: PANTOPRAZOLE 40 MG/10 ML VIAL INJ IV SCH (16:46)
--- NOTE | 2025-04-28 17:36 | DVHPN2 ---
Reviewed: H&P Changes from previous H/P or p: No Changes General: Per HPI Objective Vitals Vital Signs Date Time Temp Pulse Resp B/P (MAP) Pulse Ox O2 Delivery O2 Flow Rate FiO2 04/28/25 13:00 98.3 62 19 88/52 (64) 99 98.3 04/28/25 08:00 Room Air* 0 21 Intake/Output Intake and Output 04/28/25 07:00 Intake Total 620 ml Balance 620 ml Intake Oral 520 ml IV Total 100 ml # Voids 3 # Bowel Movements 1 Exam Gen: 69-year-old male in mild distress. Skin: Warm, dry, normal color and texture, no rash. HEENT: Normocephalic atraumatic, mucous membranes moist and pink. Neck: Cervical and supraclavicular nodes normal without enlargement, trachea is midline, thyroid gland is normal without masses. Pulmonary: Diminished breath sounds bilaterally. Cardiac: Regular rate and rhythm. No murmur Abdomen: Soft, nontender, nondistended, bowel sounds present all 4 quadrants, no guarding, no rigidity, no organomegaly. Extremities: No cyanosis, clubbing, no edema Neuro: Cranial nerves II through XII grossly intact, normal affect and speech, no focal motor deficits. Medications Current Medications Medications Dose Ordered Sig/Jose Route Start Time Stop Time Status Last Admin Dose Admin Albuterol 2.5 mg Q6HPRN PRN NEB 04/27/25 14:45 Aspirin 81 mg DAILY PO 04/28/25 10:00 04/28/25 09:54 81 MG Furosemide 40 mg DAILY PO 04/28/25 10:00 04/28/25 09:55 40 MG Lisinopril 20 mg DAILY PO 04/28/25 10:00 04/28/25 09:56 20 MG Metoprolol Tartrate 12.5 mg BID PO 04/27/25 22:00 04/28/25 09:57 12.5 MG Atorvastatin Calcium 20 mg HS PO 04/27/25 22:00 04/27/25 22:47 20 MG Tamsulosin HCl 0.4 mg QPM PO 04/27/25 18:00 04/27/25 17:38 0.4 MG Rivaroxaban 20 mg DAILY PO 04/28/25 10:00 04/28/25 09:57 20 MG Azithromycin 250 ml @ 125 mls/hr DAILY IV 04/28/25 10:00 04/28/25 09:54 125 MLS/HR Ondansetron HCl 4 mg Q4HP PRN IV 04/27/25 14:45 Acetaminophen 650 mg Q6HP PRN PO 04/27/25 14:45 Diagnostic Test (Pha) 1 strip ACHS 04/27/25 17:00 04/28/25 17:04 1 STRIP Insulin Human Regular ACHS SC 04/27/25 17:00 04/28/25 11:03 4 UNITS Dextrose 50 ml UD PRN IV 04/27/25 14:45 Dexamethasone Sodium Phosphate 6 mg DAILY IV 04/28/25 15:00 04/28/25 16:46 6 MG Remdesivir 0 ml @ 0 mls/hr PER PHARMACY IV 04/28/25 15:00 04/30/25 15:01 Pantoprazole Sodium 40 mg DAILY IV 04/28/25 15:00 04/28/25 16:46 40 MG Doxycycline Hyclate 100 ml @ 50 mls/hr Q12H IV 04/28/25 15:00 Ceftriaxone Sodium 50 ml @ 100 mls/hr DAILY@09 IV 04/28/25 15:00 04/28/25 16:51 100 MLS/HR Remdesivir 100 mg/ Sodium Chloride 250 ml @ 250 mls/hr DAILY@1500 IV 04/29/25 15:00 04/30/25 15:59 Laboratory Results Laboratory Tests 04/27/25 11:37 Urinalysis Test 04/27/25 17:30 Urine Color Light-yellow (Yellow) Urine Clarity Turbid (Clear) H Urine pH 5.5 (5.0-9.0) Urine Specific [place] 1.015 (1.001-1.035) Urine Protein 1+ (Negative) H Urine Ketones Negative (Negative) Urine Blood Negative /uL (Negative) Urine Nitrite Negative (Negative) Urine Bilirubin Negative (Negative) Urine Urobilinogen Normal mg/dL (Negative) Urine Leukocyte Esterase 3+ /uL (Negative) Urine RBC 3 /hpf (0 - 3) Urine WBC Clumps Present /hpf (None Seen) Urine Microscopic WBC 202 /HPF (0-3) H Urine Squamous Epithelial Cells Few /hpf (<5) Urine Bacteria Mod /hpf (None Seen) H Urine Hyaline Casts Few /lpf (0 - 2) Urine Mucus Few (None Seen) Urine Glucose Normal mg/dL (Normal) Microbiology Microbiology Date/Time Source Procedure Growth Status 04/27/25 11:35 Blood Blood Culture - Preliminary NO GROWTH AFTER 24 HOURS OF INCUBATION. Resulted Labs and/or images reviewed: Labs reviewed by me, Image(s) reviewed by me Assessment/Plan Assessment/Plan 69-year-old male w CVA, diabetes mellitus, CHF, AFib, dyslipidemia, hypertension presents for evaluation of shortness for breath. Patient reports a four day history of flu-like symptoms including generalized body aches, shortness for breath with a cough having clear sputum. She also reports having intermittent fever. Denies chest pain or palpitations. No other acute complaints reported. 04/28: Patient here with COVID pneumonia initially symptoms of shortness of breath and respiratory distress, flu-like symptoms. Trending patient also empirically for possible bacterial pneumonia. Continue patient on IV antibiotics ceftriaxone azithromycin and continue COVID pneumonia treatment with remdesivir and Decadron. Continue Protonix,. Patient had can also get Lovenox for prophylaxis. Patient will need treatment until Thursday afternoon, after 3rd dose of remdesivir given on Thursday patient can, if stable, can be discharged home. Diagnosis: COVID pneumonia COVID-19 infection Pneumonia, Gram-negative/Gram-positive possible Respiratory distress Diabetes mellitus AFib CHF Hyperlipidemia History CVA. Plan: Ceftriaxone Inhaler albuterol PRN Azithromycin Remdesivir Decadron Continue diet Protonix Continue home meds Med surge Full code Plan discussed with: Patient My Orders Orders - AMELIA BARRERA MD Procedure Category Date Status Time * Wound Consult CONS 04/28/25 Transmitted Dexamethasone PHA 04/28/25 In Process Injection (Decadron 15:00 Remdesivir Per PHA 04/28/25 In Process Pharmacy 15:00 Pantoprazole PHA 04/28/25 In Process (Protonix) 15:00 Doxycycline PHA 04/28/25 In Process 100mg/100ml 15:00 Ceftriaxone 1gm/50ml PHA 04/28/25 In Process (Rocephin) 15:00 Remdesivir 100mg PHA 04/29/25 In Process (Veklury) 15:00 Date of Service: Apr 28, 2025 Billing Provider: AMELIA BARRERA MD Common Visit Codes: [id number] INP/OBS CARE(HIGH) AMELIA BARRERA MD Apr 28, 2025 17:36
[2025-04-28] MEDS: REMDESIVIR 200mg in NS 210mL LOADING DOSE ADULT IV ONE (17:50)
[2025-04-28] MEDS: DOXYCYCLINE 100MG/100ML 100 ML IV SCH (20:52)
[2025-04-29] VITALS (9 sets, daily range): BP systolic 133–153; BP diastolic 65–84; PULSE 59–89; RESP 16–19; TEMP 97.5–98.2; O2SAT 96–100
[2025-04-29 07:14] LABS: Alanine Aminotransferase 20 U/L (7-40); Alkaline Phosphatase 73 U/L (46-116); Anion Gap 13 (5-15); BUN/Creatinine Ratio 44.4 (10.0-20.0); Calcium 9.1 mg/dL (8.7-10.4); Chloride 107 mmol/L (98-107); Potassium 4.8 mmol/L (3.5-5.1); Sodium 139 mmol/L (136-145); Total Protein 6.4 g/dL (5.7-8.2)
[2025-04-29 07:15] LABS: Albumin 3.9 g/dL (3.2-4.8)
[2025-04-29 07:21] LABS: Bilirubin, Total 0.2 mg/dL (0.2-1.0); Blood Urea Nitrogen 40 mg/dL (9-23); Carbon Dioxide 19 mmol/L (20-31); Glucose 138 mg/dL (74-106)
[2025-04-29 07:27] LABS: Hematocrit 29.2 % (41.0-53.0); Hemoglobin 10.3 g/dL (13.5-17.5); Mean Corpuscular Hemoglobin 31.8 pg (28.0-32.0); Mean Corpuscular Volume 90.1 fL (80.0-100.0); Nucleated Red Blood Cells % 0.1 %
--- NOTE | 2025-04-29 14:06 | DVHPN2 ---
Subjective I am assuming the care of the patient from today onwards. Chart reviewed. This is a follow up on 69-year-old male who initially presented to the hospital with shortness breath found to have COVID-19 currently on remdesivir and IV antibiotics. Reviewed: H&P Changes from previous H/P or p: No Changes General: Per HPI Objective Vitals Vital Signs Date Time Temp Pulse Resp B/P (MAP) Pulse Ox O2 Delivery O2 Flow Rate FiO2 04/29/25 09:01 96 Room Air 0.0 04/29/25 09:01 21 04/29/25 09:00 97.7 89 18 139/79 (99) 97.7 Intake/Output Intake and Output 04/29/25 07:00 Intake Total 975 ml Balance 975 ml Intake Oral 725 ml IV Total 250 ml # Voids 9 # Bowel Movements 3 Exam HEENT pupils are reactive Neck is supple CV is S1-S2 regular rate and rhythm Respiratory diminished BS on bases GI positive bowel sound Extremity no edema K 9 HANDLER/ DEPUTY no motor deficit Medications Current Medications Medications Dose Ordered Sig/Jose Route Start Time Stop Time Status Last Admin Dose Admin Albuterol 2.5 mg Q6HPRN PRN NEB 04/27/25 14:45 Aspirin 81 mg DAILY PO 04/28/25 10:00 04/29/25 08:25 81 MG Furosemide 40 mg DAILY PO 04/28/25 10:00 04/29/25 08:26 40 MG Lisinopril 20 mg DAILY PO 04/28/25 10:00 04/29/25 08:26 20 MG Metoprolol Tartrate 12.5 mg BID PO 04/27/25 22:00 04/29/25 08:26 12.5 MG Atorvastatin Calcium 20 mg HS PO 04/27/25 22:00 04/28/25 20:52 20 MG Tamsulosin HCl 0.4 mg QPM PO 04/27/25 18:00 04/28/25 18:00 0.4 MG Rivaroxaban 20 mg DAILY PO 04/28/25 10:00 04/29/25 08:25 20 MG Azithromycin 250 ml @ 125 mls/hr DAILY IV 04/28/25 10:00 04/29/25 12:47 125 MLS/HR Ondansetron HCl 4 mg Q4HP PRN IV 04/27/25 14:45 Acetaminophen 650 mg Q6HP PRN PO 04/27/25 14:45 Diagnostic Test (Pha) 1 strip ACHS 04/27/25 17:00 04/29/25 10:53 1 STRIP Insulin Human Regular ACHS SC 04/27/25 17:00 04/29/25 11:04 4 UNITS Dextrose 50 ml UD PRN IV 04/27/25 14:45 Dexamethasone Sodium Phosphate 6 mg DAILY IV 04/28/25 15:00 04/29/25 08:24 6 MG Remdesivir 0 ml @ 0 mls/hr PER PHARMACY IV 04/28/25 15:00 04/30/25 15:01 Pantoprazole Sodium 40 mg DAILY IV 04/28/25 15:00 04/29/25 08:25 40 MG Ceftriaxone Sodium 50 ml @ 100 mls/hr DAILY@09 IV 04/28/25 15:00 04/29/25 08:29 100 MLS/HR Remdesivir 100 mg/ Sodium Chloride 250 ml @ 250 mls/hr DAILY@1500 IV 04/29/25 15:00 04/30/25 15:59 Doxycycline Hyclate 100 ml @ 50 mls/hr Q12HR@0900,2100 IV 04/28/25 21:00 04/29/25 10:38 50 MLS/HR Laboratory Results Laboratory Tests 04/29/25 05:09 Chemistry Test 04/29/25 05:09 Albumin 3.9 g/dL (3.2-4.8) Calcium Level 9.1 mg/dL (8.7-10.4) Total Protein 6.4 g/dL (5.7-8.2) LFT Test 04/29/25 05:09 Alanine Aminotransferase (ALT) 20 U/L (7-40) Alkaline Phosphatase 73 U/L (46-116) Aspartate Amino Transferase (AST) 22 U/L (13-40) Total Bilirubin 0.2 mg/dL (0.2-1.0) Urinalysis Test 04/27/25 17:30 Urine Color Light-yellow (Yellow) Urine Clarity Turbid (Clear) H Urine pH 5.5 (5.0-9.0) Urine Specific [place] 1.015 (1.001-1.035) Urine Protein 1+ (Negative) H Urine Ketones Negative (Negative) Urine Blood Negative /uL (Negative) Urine Nitrite Negative (Negative) Urine Bilirubin Negative (Negative) Urine Urobilinogen Normal mg/dL (Negative) Urine Leukocyte Esterase 3+ /uL (Negative) Urine RBC 3 /hpf (0 - 3) Urine WBC Clumps Present /hpf (None Seen) Urine Microscopic WBC 202 /HPF (0-3) H Urine Squamous Epithelial Cells Few /hpf (<5) Urine Bacteria Mod /hpf (None Seen) H Urine Hyaline Casts Few /lpf (0 - 2) Urine Mucus Few (None Seen) Urine Glucose Normal mg/dL (Normal) Microbiology Microbiology Date/Time Source Procedure Growth Status 04/27/25 11:35 Blood Blood Culture - Preliminary NO GROWTH AFTER 48 HOURS OF INCUBATION. Resulted Assessment/Plan Assessment/Plan 69-year-old male with a known history of congestive heart failure, hypertension, diabetes mellitus type 2, dyslipidemia, chronic AFib currently on Xarelto presented to the hospital with shortness of breaths flu-like symptoms for last 4 days found to have 1. Acute hypoxic respiratory failure secondary to COVID-19 pneumonia, currently on room air 2. COVID-19 pneumonia currently on remdesivir and dexamethasone 3. Suspected bacterial pneumonia currently on IV antibiotics 4. Metabolic acidosis secondary to dehydration 5. Diabetes mellitus type 2 6. Hypertension 7 chronic AFib currently on Xarelto 8. Congestive heart failure suspected diastolic dysfunction currently compensated -continue contact and droplet isolation, IV remdesivir watch kidney functioning, continue dexamethasone continue antibiotics -discharge plan after a total of 3 doses of remdesivir. Plan discussed with: Patient Date of Service: Apr 29, 2025 Billing Provider: ARANZA SANCHEZ MD Common Visit Codes: [id number] INP/OBS CARE(MOD) ARANZA SANCHEZ MD Apr 29, 2025 14:06
[2025-04-29] MEDS: REMDESIVIR 100mg in NS 230mL (3 DAY REGIMEN) IV SCH (15:28)
[2025-04-30] VITALS (7 sets, daily range): BP systolic 123–166; BP diastolic 59–108; PULSE 56–82; RESP 17–19; TEMP 36.8; O2SAT 97–99
[2025-04-30 13:35] LABS: Hematocrit 32.2 % (41.0-53.0); Hemoglobin 10.9 g/dL (13.5-17.5); Mean Corpuscular Hemoglobin 30.9 pg (28.0-32.0); Mean Corpuscular Volume 91.3 fL (80.0-100.0); Nucleated Red Blood Cells % 0.1 %
[2025-04-30 13:53] LABS: Alanine Aminotransferase 36 U/L (7-40); Albumin 4.1 g/dL (3.2-4.8); Alkaline Phosphatase 73 U/L (46-116); Anion Gap 12 (5-15); BUN/Creatinine Ratio 34.1 (10.0-20.0); Calcium 9.0 mg/dL (8.7-10.4); Carbon Dioxide 22 mmol/L (20-31); Chloride 105 mmol/L (98-107); Potassium 4.5 mmol/L (3.5-5.1); Sodium 139 mmol/L (136-145); Total Protein 6.9 g/dL (5.7-8.2)
[2025-04-30 13:54] LABS: Bilirubin, Total 0.3 mg/dL (0.2-1.0); Blood Urea Nitrogen 29 mg/dL (9-23); Glucose 167 mg/dL (74-106)
[2025-04-30] MEDS ORDERED: DOXY100C79 PO (15:18)
[2025-04-30] MEDS ORDERED: METH4PAK PO (15:18)
--- NOTE | 2025-04-30 15:20 | DVHDS2 ---
Discharge Summary Date of Admission Apr 27, 2025 at 14:44 Date of Discharge: Apr 30, 2025 Labs/Diagnostic Data: Laboratory Results Test 04/30/25 13:15 04/30/25 11:58 04/27/25 17:30 04/27/25 14:00 White Blood Count 6.1 10^3/uL (4.4-10.8) Red Blood Count 3.52 10^6/uL (4.5-5.90) Hemoglobin 10.9 g/dL (13.5-17.5) Hematocrit 32.2 % (41.0-53.0) Mean Corpuscular Volume 91.3 fL (80.0-100.0) Mean Corpuscular Hemoglobin 30.9 pg (28.0-32.0) Mean Corpuscular Hemoglobin Concent 33.9 g/dL (32.0-36.0) Red Cell Distribution Width 13.8 % (11.8-14.3) Platelet Count 273 10^3/uL (140-450) Mean Platelet Volume 7.7 fL (6.9-10.8) Neutrophils (%) (Auto) 79.1 % (37.0-80.0) Lymphocytes (%) (Auto) 13.1 % (10.0-50.0) Monocytes (%) (Auto) 7.7 % (0.0-12.0) Eosinophils (%) (Auto) 0.1 % (0.0-7.0) Basophils (%) (Auto) 0.0 % (0.0-2.0) Neutrophils # (Auto) 4.8 10 ^3/uL (1.6-8.6) Lymphocytes # (Auto) 0.8 10 ^3/uL (0.4-5.4) Monocytes # (Auto) 0.5 10 ^3/uL (0-1.3) Eosinophils # (Auto) 0 10 ^3/uL (0-0.8) Basophils # (Auto) 0 10 ^3/uL (0-0.2) Nucleated Red Blood Cells 0.1 % Sodium Level 139 mmol/L (136-145) Potassium Level 4.5 mmol/L (3.5-5.1) Chloride Level 105 mmol/L (98-107) Carbon Dioxide Level 22 mmol/L (20-31) Anion Gap 12 (5-15) Blood Urea Nitrogen 29 mg/dL (9-23) Creatinine 0.85 mg/dL (0.700-1.30) Glomerular Filtration Rate Calc 93 mL/min (>90) BUN/Creatinine Ratio 34.1 (10.0-20.0) Serum Glucose 167 mg/dL (74-106) Calcium Level 9.0 mg/dL (8.7-10.4) Total Bilirubin 0.3 mg/dL (0.2-1.0) Aspartate Amino Transferase (AST) 35 U/L (13-40) Alanine Aminotransferase (ALT) 36 U/L (7-40) Alkaline Phosphatase 73 U/L (46-116) Total Protein 6.9 g/dL (5.7-8.2) Albumin 4.1 g/dL (3.2-4.8) POC Glucose 133 mg/dl (70-106) Urine Color Light-yellow (Yellow) Urine Clarity Turbid (Clear) Urine pH 5.5 (5.0-9.0) Urine Specific [place] 1.015 (1.001-1.035) Urine Protein 1+ (Negative) Urine Ketones Negative (Negative) Urine Blood Negative /uL (Negative) Urine Nitrite Negative (Negative) Urine Bilirubin Negative (Negative) Urine Urobilinogen Normal mg/dL (Negative) Urine Leukocyte Esterase 3+ /uL (Negative) Urine RBC 3 /hpf (0 - 3) Urine WBC Clumps Present /hpf (None Seen) Urine Microscopic WBC 202 /HPF (0-3) Urine Squamous Epithelial Cells Few /hpf (<5) Urine Bacteria Mod /hpf (None Seen) Urine Hyaline Casts Few /lpf (0 - 2) Urine Mucus Few (None Seen) Urine Glucose Normal mg/dL (Normal) Influenza Type A Antigen Negative (Negative) Influenza Type B Antigen Negative (Negative) SARS-CoV-2 Antigen (Rapid) Positive (NEGATIVE) Lactic Acid Level 1.4 mmol/L (0.4-2.0) Test 04/27/25 11:37 Troponin I High Sensitivity 21 ng/L (</=54) B-Type Natriuretic Peptide 185.35 pg/mL (0-100) Other Laboratory Tests 04/30/25 13:15 Brief Hx & Hospital Course: 69-year-old male with a known history of congestive heart failure, hypertension, diabetes mellitus type 2, dyslipidemia, chronic AFib currently on Xarelto presented to the hospital with shortness of breaths flu-like symptoms for last 4 days found to have acute hypoxic respiratory failure secondary to COVID-19 pneumonia. Patient was treated with the remdesivir as well as dexamethasone as well as IV antibiotics. Patient will be given p.o. antibiotics and Medrol Dosepak for home. Patient is being discharged under stable condition. Respiratory isolation for seven more days. Condition at Discharge: Stable Final Diagnosis/Problems List 69-year-old male with a known history of congestive heart failure, hypertension, diabetes mellitus type 2, dyslipidemia, chronic AFib currently on Xarelto presented to the hospital with shortness of breaths flu-like symptoms for last 4 days found to have 1. Acute hypoxic respiratory failure secondary to COVID-19 pneumonia, currently on room air 2. COVID-19 pneumonia currently on remdesivir and dexamethasone 3. Suspected bacterial pneumonia currently on IV antibiotics 4. Metabolic acidosis secondary to dehydration 5. Diabetes mellitus type 2 6. Hypertension 7 chronic AFib currently on Xarelto 8. Congestive heart failure suspected diastolic dysfunction currently compensated Discharge Disposition: Home SNF Discharge Will this Physician continue t: No Discharge Instruct/Medications Diet: Cardiac 2g Na,low cholest Diet comment: 1800 ADA diet. Activity: [id number] Activity comment: Respiratory isolation for next seven days Follow Up/Referral: Follow up with the PCP in one week Medications: Doxycycline and Medrol Dosepak as prescribed. New Medications: Doxycycline (Monohydrate) (Doxycycline) 100 Mg Cap 100 MG PO BID, #20 CAP Methylprednisolone (Medrol Dosepak) 4 Mg Christian[place] 4 MG PO UD, #21 TAB UAD Continued Medications: Aspirin (Aspirin Low Dose) 81 Mg Tab 81 MG PO DAILY for 30 Days, #30 TAB Furosemide (Furosemide) 40 Mg Tab 1 TAB PO DAILY Lisinopril (Lisinopril) 20 Mg Tab 1 TAB PO DAILY Metformin Hydrochloride (Metformin Hcl) 850 Mg Tab 1 TAB PO BIDBRS Metoprolol Tartrate (Lopressor) 25 Mg Tb 12.5 MG PO BID for 30 Days, #30 TAB Rivaroxaban (Xarelto Tablet) 20 Mg Tb 1 TAB PO DAILY Simvastatin (Simvastatin) 20 Mg Tab 1 TAB PO QPM Scheduled Aspirin (Aspirin Low Dose), 81 MG PO DAILY Doxycycline (Monohydrate) (Doxycycline), 100 MG PO BID Furosemide (Furosemide), 1 TAB PO DAILY, (Reported) Lisinopril (Lisinopril), 1 TAB PO DAILY, (Reported) Metformin Hydrochloride (Metformin Hcl), 1 TAB PO BIDBRS, (Reported) Methylprednisolone (Medrol Dosepak), 4 MG PO UD Metoprolol Tartrate (Lopressor), 12.5 MG PO BID Rivaroxaban (Xarelto Tablet), 1 TAB PO DAILY, (Reported) Simvastatin (Simvastatin), 1 TAB PO QPM, (Reported) Discharge Statement: "Patient was advised to return to the ER or call 911 if any headaches, dizziness, shortness of breath, chest pain, abdominal pain, bleeding, fevers, or worsening of medical condition. Patient was counseled about treatment plan, medications, possible side effects, patientverbalized understanding. All questions were answered to the best of my ability. This discharge took greater then 30 minutes in planning, reviewing documentation, counseling the patient, and discussing with other team members." ASSESSMENT ASSESSMENT Assessment 69-year-old male with a known history of congestive heart failure, hypertension, diabetes mellitus type 2, dyslipidemia, chronic AFib currently on Xarelto presented to the hospital with shortness of breaths flu-like symptoms for last 4 days found to have 1. Acute hypoxic respiratory failure secondary to COVID-19 pneumonia, currently on room air 2. COVID-19 pneumonia currently on remdesivir and dexamethasone 3. Suspected bacterial pneumonia currently on IV antibiotics 4. Metabolic acidosis secondary to dehydration 5. Diabetes mellitus type 2 6. Hypertension 7 chronic AFib currently on Xarelto 8. Congestive heart failure suspected diastolic dysfunction currently compensated Date of Service: Apr 30, 2025 Billing Provider: ARANZA SANCHEZ MD Common Visit Codes: [id number] DISCH DAY >30min ARANZA SANCHEZ MD Apr 30, 2025 15:20
== END 2025-04-30 17:12 | disposition home or self-care (01) | DRG 177 ==
LOC: ER 10:35 → OVERFLOW 14:44 → WEST WING 16:18 → CENTRAL 21:44
PROVIDERS: ADMIT Student in an Organized Health Care Education/Training Program; ATTEND Student in an Organized Health Care Education/Training Program
PROC: XW033E5 Introduction of Remdesivir Anti-infective into Peripheral Vein, Percutaneous Approach, New Technology Group 5 (ICD-10-PCS; principal; 2025-04-28)
DX: U07.1 COVID-19 (principal); J12.82 Pneumonia due to coronavirus disease 2019; J96.01 Acute respiratory failure with hypoxia; J15.9 Unspecified bacterial pneumonia; I48.20 Chronic atrial fibrillation, unspecified; E87.20 Acidosis, unspecified; I50.32 Chronic diastolic (congestive) heart failure; J15.69 Pneumonia due to other Gram-negative bacteria; J98.4 Other disorders of lung; E11.9 Type 2 diabetes mellitus without complications; I11.0 Hypertensive heart disease with heart failure; E86.0 Dehydration; E78.5 Hyperlipidemia, unspecified; Z79.01 Long term (current) use of anticoagulants; Z86.73 Personal history of transient ischemic attack (TIA), and cerebral infarction without residual deficits; Z78.9 Other specified health status
CPT/HCPCS: 36415; 71046; 80048; 80053; 81001; 82962; 83605; 83880; 84484; 85025; 87040; 87426; 87804; 93005; 99291; G0378; J1100; J1815; J1956; J2470

== ENCOUNTER 2025-06-07 08:49 | Outpatient (CLI) | payer OTHER ==
[~2025-06-07 08:49] MED LIST changes: +DOXY100C79 PO; +METH4PAK PO
[2025-06-07 09:50] LABS: Triglycerides 99 mg/dL (< 150)
[2025-06-07 09:52] LABS: Cholesterol 148 mg/dL (< 200); HDL Cholesterol 55 mg/dL (40-59)
== END 2025-06-07 17:00 | disposition home or self-care (01) ==
LOC: LAB 08:49
PROVIDERS: ATTEND Internal Medicine
DX: E11.9 Type 2 diabetes mellitus without complications (principal); D64.9 Anemia, unspecified
CPT/HCPCS: 36415; 80061; 82043; 82570; 83036

== ENCOUNTER 2025-07-06 10:06 | Outpatient (CLI) | payer OTHER ==
[2025-07-06 10:50] LABS: Hematocrit 31.1 % (41.0-53.0); Hemoglobin 10.4 g/dL (13.5-17.5); Mean Corpuscular Hemoglobin 31.8 pg (28.0-32.0); Mean Corpuscular Volume 95.1 fL (80.0-100.0); Nucleated Red Blood Cells % 0.0 %
[2025-07-06 11:17] LABS: Alanine Aminotransferase 12 U/L (7-40); Alkaline Phosphatase 82 U/L (46-116); Anion Gap 10 (5-15); BUN/Creatinine Ratio 15.8 (10.0-20.0); Blood Urea Nitrogen 16 mg/dL (9-23); Calcium 10.0 mg/dL (8.7-10.4); Carbon Dioxide 30 mmol/L (20-31); Chloride 103 mmol/L (98-107); Potassium 4.2 mmol/L (3.5-5.1); Sodium 143 mmol/L (136-145); Total Protein 6.9 g/dL (5.7-8.2)
[2025-07-06 11:18] LABS: Albumin 4.2 g/dL (3.2-4.8); Bilirubin, Total 0.6 mg/dL (0.2-1.0); Glucose 130 mg/dL (74-106)
[2025-07-06 11:59] LABS: Microalb/Creat Ratio, Urine 338.0
== END 2025-07-06 17:00 | disposition home or self-care (01) ==
LOC: LAB 10:06
PROVIDERS: ATTEND Internal Medicine
DX: I11.0 Hypertensive heart disease with heart failure (principal); E11.9 Type 2 diabetes mellitus without complications; I50.9 Heart failure, unspecified
CPT/HCPCS: 36415; 80053; 82043; 82570; 83036; 85025

== ENCOUNTER 2025-07-12 09:52 | Inpatient (IN) | payer OTHER ==
[2025-07-11 13:04] LABS: Hematocrit 32.1 % (41.0-53.0); Hemoglobin 10.9 g/dL (13.5-17.5); Mean Corpuscular Hemoglobin 32.1 pg (28.0-32.0); Mean Corpuscular Volume 94.8 fL (80.0-100.0); Nucleated Red Blood Cells % 0.0 %
[2025-07-11 13:06] LABS: INR 1.05 (0.9-1.15); Partial Thromboplastin Time 27.5 SEC (24.5-34.5); Prothrombin Time 11.1 sec (9.3-11.8)
[2025-07-11 13:35] LABS: Albumin 4.3 g/dL (3.2-4.8); Alkaline Phosphatase 78 U/L (46-116); Anion Gap 9 (5-15); BUN/Creatinine Ratio 16.2 (10.0-20.0); Bilirubin, Total 0.6 mg/dL (0.2-1.0); Blood Urea Nitrogen 18 mg/dL (9-23); Calcium 9.9 mg/dL (8.7-10.4); Carbon Dioxide 30 mmol/L (20-31); Chloride 103 mmol/L (98-107); Glucose 81 mg/dL (74-106); Potassium 4.8 mmol/L (3.5-5.1); Sodium 142 mmol/L (136-145); Total Protein 7.1 g/dL (5.7-8.2)
[2025-07-11 13:41] LABS: Alanine Aminotransferase < 9 U/L (7-40)
[2025-07-12] VITALS (16 sets, daily range): BP systolic 110–202; BP diastolic 58–119; PULSE 54–106; RESP 13–20; TEMP 97.5–98.8; O2SAT 95–100
[~2025-07-12] VITALS: Ht 180.3 cm; Wt 90.0 kg
[~2025-07-12 09:52] MED LIST changes: -ASPI-325 PO; +BENA10TA90 PO; -DOXY100C79 PO; -LISI20TA56 PO; -MET25T PO; -METH4PAK PO; +METO-158 PO; +NITR0.4S29 SL; +POTA-180 PO; +SERT25TA84 PO; +TAMS0.4C39 PO
[2025-07-12] MEDS: IODIXANOL 320MG/ML 100ML BTL IV ONE (11:37)
[2025-07-12] MEDS: MIDAZOLAM HCL 2MG/2ML 2ml VIAL (1mg/ml) ONE (11:39)
[2025-07-12] MEDS: HEPARIN SODIUM (PORCINE) 5000 UNITS/ML 1ML VIAL ONE (11:39)
[2025-07-12] MEDS: LIDOCAINE 2%HCL (LOCAL ANESTH.) INJ 20ML MDV ONE (11:39)
[2025-07-12] MEDS: fentaNYL CITRATE 100 MCG/2 ML VL ONE (11:39)
[2025-07-12] MEDS: ANGIOMAX 250 MG VIAL IV ONE (11:39)
[2025-07-12] MEDS: VERAPAMIL 2.5MG/ML INJ 2ML VIAL IV ONE (11:41)
--- NOTE | 2025-07-12 13:00 | DVHOP2 ---
Operative Report - 2 Report Details Date: 07/12/25 Preop Diagnosis: CAD Postop Diagnosis: CAD Surgeon: Jayde Trevizo MD Anesthesiologist: Conscious sedation: I personally supervised the administration of conscious sedation medication. I supervised the patient throughout 20 minutes that transpired during his angiographic procedure. Anesthesia: Mac, Local Consent: The patient was informed of the risks and benefits of the procedure. These include but are not limited to complications of anesthesia, postoperative infection, incomplete relief of symptoms, recurrence of symptoms, damage to blood vessels, nerves and tendons, deep venous thrombosis, pulmonary embolism and possible need for repeat surgery in the future. Complications: No complications. Findings: Significant distal left main disease. Indications for Surgery: Chest pain. Abnormal stress test. Name of Procedure Performed Left heart catheterization. Bilateral cine coronary angiography. Left ventriculography. Fractional flow reserve evaluation with catheterization works program of distal RCA. Procedure Details Procedure Details: Prior local anesthesia with 2% lidocaine to the right wrist and full informed consent obtained the patient was prepped and draped in usual fashion followed by placement of a tiger catheter into the radial artery over a slender sheath. We then performed angiographic evaluation of both right and left coronary ostia and ventriculography without complications Hemodynamics: Aortic blood pressure was 130/70 end-diastolic pressure was 12. There was no gradient across the aortic valve on pullback. Coronary anatomy: The RCA is large and normal. The proximal mid section and normal. There was a distal 40-50% stenosis prior to the origin of the PDA/posterolateral branches. FFR revealed 0.86 consistent with noncritical disease. PDA and posterolateral branches are normal. The left main is large in his normal in its proximal and mid section. The distal segment has what appears to be 75-80% stenosis. Proximal ostial segment of the LAD seems to be confluence in the stenosis present at the distal left main. Mild ostial stenosis of the circumflex. The proximal mid and distal segments of the LAD and diagonals are normal. The septals are normal. The marginals and circumflex overall is free of significant disease distal to the left main stenosis. Ventriculography in the DOMINGUEZ projection shows an EF of 50% with enlarged left ventricle and mild global hypokinesis. Impression: Severe distal left main stenosis involving the proximal ostial segment of the left anterior descending coronary artery. Normal left v entricular end-diastolic pressure with normal ejection fraction. Recommendations: The patient will be transferred for coronary artery bypass grafting of the left anterior descending possibly the circumflex marginal. Condition Fair Disposition Still a Patient Date of Service: Jul 12, 2025 Billing Provider: JAYDE TREVIZO Sr., MD Cardiology Common Codes: [id number] INP/OBS CARE (High) JAYDE TREVIZO Sr., MD Jul 12, 2025 13:00
[2025-07-12] MEDS ORDERED: DOCUSATE SOD 100 MG CAP PO PRN (14:30)
[2025-07-12] MEDS ORDERED: ONDANSETRON HCL 4 MG/2 ML VIAL IV PRN (14:30)
[2025-07-12] MEDS ORDERED: MORPHINE SULFATE INJ 2 MG/ml SYRG IV PRN ×2 (14:30)
[2025-07-12] MEDS ORDERED: NITROGLYCERIN 0.4 MG SL TAB SL PRN (14:30)
[2025-07-12] MEDS ORDERED: ACETAMINOPHEN 500 MG TAB or CAP PO PRN (14:30)
[2025-07-12] MEDS ORDERED: ALBUTEROL SULF 2.5 MG/0.5ML(0.5%) NEB SOLN NEB PRN (14:30)
[2025-07-12] MEDS ORDERED: IPRATROPIUM BROM 0.5 MG/2.5ML INH SOL NEB PRN (14:30)
[2025-07-12] MEDS ORDERED: DEXTROSE (50%) 50ML SYRG IV PRN (14:30)
[2025-07-12] MEDS ORDERED: HYDROcodone-ACET 5/325MG TAB PO PRN (14:30)
--- NOTE | 2025-07-12 16:03 | DVHHP2 ---
History of Present Illness Reason for Visit: Abnormal stress test History of Present Illness Patient has a 70 year male admitted to the hospital after having elective left heart catheterization for positive stress test. Findings of angiogram revealed left main coronary artery disease in addition to left anterior descending artery disease. Discussion was made with the patient by Cardiology for admission with the hospital as well as transfer to higher level of care for CT surgery consultation for possible CABG. At the time of assessment, the patient has no chest pain. Patient does have a significant history of CVA, atrial fibrillation with anticoagulation (Xarelto), diabetes mellitus, BPH, and primary hypertension. Patient's last dose of Xarelto was 07/09/2025. Cardiovascular: AFIB, HTN PENS AND PENCILS DIPPER: CVA Past Surgical History: None Smoke: No ALCOHOL: none Lives: with Family Review of Systems Constitutional: No: Fever, Chills, Sweats, Weakness, Malaise, Other Eyes: No: Pain, Vision change, Conjunctivae inflammation, Eyelid inflammation, Other, Redness ENT: No: Ear pain, Ear discharge, Nose pain, Nose discharge, Nose congestion, Mouth pain, Mouth swelling, Throat pain, Throat swelling, Other Respiratory: No: Cough, Dry, Shortness of breath, SOB with excertion, Wheezing, Hemoptysis, Pleuritic Pain, Sputum, Wheezing, Other Cardiovascular: No: Chest Pain, Palpitations, Orthopnea, Paroxysmal Noc. Dyspnea, Edema, Lt Headedness, Other Gastrointestinal: No: Nausea, Vomiting, Abdominal Pain, Diarrhea, Constipation, Melena, Hematochezia, Other Genitourinary: No Dysuria, No Frequency, No Incontinence, No Hematuria, No Retention, No Other Musculoskeletal: No: other, neck pain, shoulder pain, arm pain, back pain, hand pain, leg pain, foot pain Skin: No: Rash, Lesions, Jaundice, Bruising, Other Neurological: No: Weakness, Numbness, Incoordination, Change in speech, Confusi on, Seizures, Other Allergies: Coded Allergies: NO KNOWN ALLERGIES (Unverified , 07/10/25) Medications Current Medications Medications Dose Ordered Sig/Jose Route Start Time Stop Time Status Last Admin Dose Admin Nitroglycerin 0.4 mg Q5MINP PRN SL 07/12/25 14:30 Morphine Sulfate 2 mg Q30M PRN IV 07/12/25 14:30 Diagnostic Test (Pha) 1 strip ACHS 07/12/25 17:00 Insulin Human Regular ACHS SC 07/12/25 17:00 Dextrose 50 ml UD PRN IV 07/12/25 14:30 Morphine Sulfate 1 mg Q4HPRN PRN IV 07/12/25 14:30 Acetaminophen/ Hydrocodone Bitart 1 tab Q6HPRN PRN PO 07/12/25 14:30 Acetaminophen 500 mg Q8HP PRN PO 07/12/25 14:30 Ondansetron HCl 4 mg Q6HP PRN IV 07/12/25 14:30 Docusate Sodium 100 mg BID PRN PO 07/12/25 14:30 Albuterol 2.5 mg Q4HPRN PRN NEB 07/12/25 14:30 Ipratropium [place] 0.5 mg Q4HPRN PRN NEB 07/12/25 14:30 Metoprolol Tartrate 25 mg BID PO 07/12/25 22:00 Tamsulosin HCl 0.4 mg QPM PO 07/13/25 18:00 Sertraline HCl 25 mg DAILY PO 07/13/25 10:00 Atorvastatin Calcium 10 mg HS PO 07/12/25 22:00 Exam Vital Signs Vital Signs Date Time Temp Pulse Resp B/P (MAP) Pulse Ox O2 Delivery O2 Flow Rate FiO2 07/12/25 12:42 98.8 78 13 168/89 (115) 98 98.8 General Appearance: Alert, Oriented X3, Cooperative, No acute distress HEENT: Atraumatic Respiratory: Clear to auscultation, Normal air movement Cardiovascular: Normal S1, Normal S2 Abdominal: Normal bowel sounds, Soft, No tenderness, No hepatospenomegaly, No masses Extremities: No clubbing, No cyanosis Skin: No rashes, No breakdown Neuro: Normal gait, Normal speech Psych/Mental Status: Mental status NL, Mood NL Labs/Xrays Labs Test 07/11/25 12:30 Range/Units White Blood Count 6.2 4.4-10.8 10^3/uL Red Blood Count 3.38 L 4.5-5.90 10^6/uL Hemoglobin 10.9 L 13.5-17.5 g/dL Hematocrit 32.1 L 41.0-53.0 % Mean Corpuscular Volume 94.8 80.0-100.0 fL Mean Corpuscular Hemoglobin 32.1 H 28.0-32.0 pg Mean Corpuscular Hemoglobin Concent 33.9 32.0-36.0 g/dL Red Cell Distribution Width 14.8 H 11.8-14.3 % Platelet Count 244 140-450 10^3/uL Mean Platelet Volume 8.9 6.9-10.8 fL Neutrophils (%) (Auto) 65.5 37.0-80.0 % Lymphocytes (%) (Auto) 20.6 10.0-50.0 % Monocytes (%) (Auto) 11.2 0.0-12.0 % Eosinophils (%) (Auto) 1.8 0.0-7.0 % Basophils (%) (Auto) 0.9 0.0-2.0 % Neutrophils # (Auto) 4.1 1.6-8.6 10 ^3/uL Lymphocytes # (Auto) 1.3 0.4-5.4 10 ^3/uL Monocytes # (Auto) 0.7 0-1.3 10 ^3/uL Eosinophils # (Auto) 0.1 0-0.8 10 ^3/uL Basophils # (Auto) 0.1 0-0.2 10 ^3/uL Nucleated Red Blood Cells 0.0 % Prothrombin Time 11.1 9.3-11.8 sec Prothrombin Time INR 1.05 0.9-1.15 Activated Partial Thromboplast Time 27.5 24.5-34.5 SEC Sodium Level 142 136-145 mmol/L Potassium Level 4.8 3.5-5.1 mmol/L Chloride Level 103 98-107 mmol/L Carbon Dioxide Level 30 20-31 mmol/L Anion Gap 9 5-15 Blood Urea Nitrogen 18 9-23 mg/dL Creatinine 1.11 0.700-1.30 mg/dL Glomerular Filtration Rate Calc 71 >90 mL/min BUN/Creatinine Ratio 16.2 10.0-20.0 Serum Glucose 81 74-106 mg/dL Calcium Level 9.9 8.7-10.4 mg/dL Total Bilirubin 0.6 0.2-1.0 mg/dL Aspartate Amino Transferase (AST) 14 13-40 U/L Alanine Aminotransferase (ALT) < 9 7-40 U/L Alkaline Phosphatase 78 46-116 U/L Total Protein 7.1 5.7-8.2 g/dL Albumin 4.3 3.2-4.8 g/dL SEPSIS Sepsis Screen Physician Orders Cl Left Heart Cath (07/12/25 08:31) Post Cath Vital Signs Q 15min (07/12/25 ) Post Cath Activity Protocol (07/12/25 13:02) * Hospitalist Consult (07/12/25 ) * A&P Mechanic Consult (07/12/25 ) Admit (07/12/25 14:17) Nitroglycerin Sublingual (Ntrostat Subli (07/12/25 14:30) Morphine Sulfate Injection (07/12/25 14:30) Stat Ekg For Chest Pain (07/12/25 14:17) Notify Md Of Changes From Base (07/12/25 14:17) Lab Scientist For 24 Hours (07/12/25 14:17) Emergency Dysrhythmia Protocol (07/12/25 14:17) Rhythm Strips Once Every Shift (07/12/25 14:17) Oxygen By Nasal Cannula (07/12/25 14:17) Glucose Blood (Accu-Chek Comfort Curve T (07/12/25 17:00) Insulin R (Human) (Insulin R) (07/12/25 17:00) Dextrose 50% Syringe (07/12/25 14:30) Cardiac Diet-2gna,Lofat,Lochol (07/12/25 Dinner) Morphine Sulfate Injection (07/12/25 14:30) Hydrocodone-Acet 5/325mg Tab ([place] 5/32 (07/12/25 14:30) Acetaminophen Tab Or Cap (Tylenol Tablet (07/12/25 14:30) Ondansetron Hcl (Zofran) (07/12/25 14:30) Docusate Sodium Capsule (Colace Capsule) (07/12/25 14:30) Albuterol Medneb (Ventolin Medneb) (07/12/25 14:30) Ipratropium Medneb (Atrovent Medneb) (07/12/25 14:30) Metoprolol Tartrate Tablet (Lopressor Ta (07/12/25 22:00) Sertraline Hcl (Zoloft) (07/13/25 10:00) Atorvastatin (Lipitor) (07/12/25 22:00) Tamsulosin Hydrochloride (Flomax) (07/13/25 18:00) Vital Signs Date Time Temp Pulse Resp B/P (MAP) Pulse Ox O2 Delivery O2 Flow Rate FiO2 07/12/25 12:42 98.8 78 13 168/89 (115) 98 98.8 Medications Medications Dose Ordered Sig/Jose Route Start Time Stop Time Status Last Admin Dose Admin Fentanyl Citrate 100 mcg STK-MED ONCE .ROUTE 07/12/25 11:39 07/12/25 11:38 DC 07/12/25 11:39 25 MCG Iodixanol 32,000 mg STK-MED ONCE IV 07/12/25 11:37 07/12/25 11:38 DC 07/12/25 11:37 220.8 MG Midazolam HCl 2 mg STK-MED ONCE .ROUTE 07/12/25 11:39 07/12/25 11:39 DC 07/12/25 11:39 1 MG Assessment/Plan Assessment/Plan Impression: -coronary artery disease involving left main coronary artery and left anterior descending artery -history of CVA -atrial fibrillation -primary hypertension -diabetes mellitus -dyslipidemia -BPH Plan: -admit to telemetry unit -social service consultation for transfer to [facility] surgery center -regular insulin sliding scale -hold Xarelto, full-dose anticoagulation with Lovenox -continue statin -continue beta natacha -further course of care per Cardiology recommendations Total time spent with patient discussing and formulating plan of care: 35 minutes. This medical document was created using an electronic medical record system with [employer] dictation system. Although this document has been carefully reviewed, there may still be some phonetic and typographical errors. These areas are purely typographical due to imperfections of the software programs, and do not reflect any compromise in the patient's medical care. Plan discussed with: Patient, Other (RN) My Orders Orders - PASCUAL PIERSON [employer] Procedure Category Date Status Time Admit ADMIT 07/12/25 Transmitted 14:17 Nitroglycerin PHA 07/12/25 In Process Sublingual (Ntrostat 14:30 Morphine Sulfate PHA 07/12/25 In Process Injection 14:30 Stat Ekg For Chest RENITA 07/12/25 In Process Pain 14:17 Notify Md Of Changes RENITA 07/12/25 In Process From Base 14:17 Lab Scientist For RENITA 07/12/25 In Process 24 Hours 14:17 Emergency Dysrhythmia RENITA 07/12/25 In Process Protocol 14:17 Rhythm Strips Once RENITA 07/12/25 In Process Every Shift 14:17 Oxygen By Nasal RT 07/12/25 Transmitted Cannula 14:17 Glucose Blood PHA 07/12/25 In Process (Accu-Chek Comfort 17:00 Insulin R (Human) PHA 07/12/25 In Process (Insulin R) 17:00 Dextrose 50% Syringe PHA 07/12/25 In Process 14:30 Cardiac DIET 07/12/25 Transmitted Diet-2gna,Lofat,Lochol Dinner Morphine Sulfate PHA 07/12/25 In Process Injection 14:30 Hydrocodone-Acet PHA 07/12/25 In Process 5/325mg Tab ([place] 14:30 Acetaminophen Tab Or PHA 07/12/25 In Process Cap (Tylenol Tablet 14:30 Ondansetron Hcl PHA 07/12/25 In Process (Zofran) 14:30 Docusate Sodium PHA 07/12/25 In Process Capsule (Colace 14:30 Albuterol Medneb PHA 07/12/25 In Process (Ventolin Medneb) 14:30 Ipratropium Medneb PHA 07/12/25 In Process (Atrovent Medneb) 14:30 Metoprolol Tartrate PHA 07/12/25 In Process Tablet (Lopressor Ta 22:00 Sertraline Hcl PHA 07/13/25 In Process (Zoloft) 10:00 Atorvastatin (Lipitor) PHA 07/12/25 In Process 22:00 Tamsulosin PHA 07/13/25 In Process Hydrochloride (Flomax) 18:00 Date of Service: Jul 12, 2025 Billing Provider: PASCUAL PIERSON NP Common Visit Codes: [id number] INP/OBS CARE (HIGH) PASCUAL PIERSON NP Jul 12, 2025 16:03
[2025-07-12] MEDS: ACCU-CHEK COMFORT CURVE STRIP VI SCH (17:15)
[2025-07-12] MEDS: InsuLIN REG 1unit/0.01ml Soln (100units/ml) SC SCH (17:19)
[2025-07-12] MEDS ORDERED: METOPROLOL TARTRATE 25 MG TAB PO SCH (22:00)
[2025-07-12] MEDS: ATORVASTATIN 20 MG TAB PO SCH (22:28)
[2025-07-12] MEDS: ENOXAPARIN SOD 100 MG/1 ML SYRINGE SC SCH (22:35)
--- NOTE | 2025-07-13 08:34 | DVHDS2 ---
Discharge Summary Date of Admission Jul 12, 2025 at 14:17 Date of Discharge: Jul 12, 2025 Admitting Diagnosis Left main coronary artery disease Labs/Diagnostic Data: Laboratory Results Test 07/12/25 22:31 07/11/25 12:30 POC Glucose 81 mg/dl (70-106) White Blood Count 6.2 10^3/uL (4.4-10.8) Red Blood Count 3.38 10^6/uL (4.5-5.90) Hemoglobin 10.9 g/dL (13.5-17.5) Hematocrit 32.1 % (41.0-53.0) Mean Corpuscular Volume 94.8 fL (80.0-100.0) Mean Corpuscular Hemoglobin 32.1 pg (28.0-32.0) Mean Corpuscular Hemoglobin Concent 33.9 g/dL (32.0-36.0) Red Cell Distribution Width 14.8 % (11.8-14.3) Platelet Count 244 10^3/uL (140-450) Mean Platelet Volume 8.9 fL (6.9-10.8) Neutrophils (%) (Auto) 65.5 % (37.0-80.0) Lymphocytes (%) (Auto) 20.6 % (10.0-50.0) Monocytes (%) (Auto) 11.2 % (0.0-12.0) Eosinophils (%) (Auto) 1.8 % (0.0-7.0) Basophils (%) (Auto) 0.9 % (0.0-2.0) Neutrophils # (Auto) 4.1 10 ^3/uL (1.6-8.6) Lymphocytes # (Auto) 1.3 10 ^3/uL (0.4-5.4) Monocytes # (Auto) 0.7 10 ^3/uL (0-1.3) Eosinophils # (Auto) 0.1 10 ^3/uL (0-0.8) Basophils # (Auto) 0.1 10 ^3/uL (0-0.2) Nucleated Red Blood Cells 0.0 % Prothrombin Time 11.1 sec (9.3-11.8) Prothrombin Time INR 1.05 (0.9-1.15) Activated Partial Thromboplast Time 27.5 SEC (24.5-34.5) Sodium Level 142 mmol/L (136-145) Potassium Level 4.8 mmol/L (3.5-5.1) Chloride Level 103 mmol/L (98-107) Carbon Dioxide Level 30 mmol/L (20-31) Anion Gap 9 (5-15) Blood Urea Nitrogen 18 mg/dL (9-23) Creatinine 1.11 mg/dL (0.700-1.30) Glomerular Filtration Rate Calc 71 mL/min (>90) BUN/Creatinine Ratio 16.2 (10.0-20.0) Serum Glucose 81 mg/dL (74-106) Calcium Level 9.9 mg/dL (8.7-10.4) Total Bilirubin 0.6 mg/dL (0.2-1.0) Aspartate Amino Transferase (AST) 14 U/L (13-40) Alanine Aminotransferase (ALT) < 9 U/L (7-40) Alkaline Phosphatase 78 U/L (46-116) Total Protein 7.1 g/dL (5.7-8.2) Albumin 4.3 g/dL (3.2-4.8) Other Laboratory Tests 07/11/25 12:30 Brief Hx & Hospital Course: History of Present Illness Patient has a 70 year male admitted to the hospital after having elective left heart catheterization for positive stress test. Findings of angiogram revealed left main coronary artery disease in addition to left anterior descending artery disease. Discussion was made with the patient by Cardiology for admission with the hospital as well as transfer to higher level of care for CT surgery consultation for possible CABG. At the time of assessment, the patient has no chest pain. Patient does have a significant history of CVA, atrial fibrillation with anticoagulation (Xarelto), diabetes mellitus, BPH, and primary hypertension. Patient's last dose of Xarelto was 07/09/2025. Course of hospitalization: Patient's home medications were reconciled periods Xarelto was held. Patient was started on therapeutic dose Lovenox. Patient was subsequently transferred to [facility] for Cardiothoracic evaluation and possible CABG. Physical examination General: Alert and Oriented x3. No acute distress. Well-nourished. Eyes: EOMI. Anicteric. HENT: Moist mucous membranes. Lungs: Clear to auscultation bilaterally. No accessory muscle use. Cardiovascular: Regular rate and rhythm. No murmur. No JVD. Abdomen: Soft, non-tender and non-distended. No palpable masses. Extremities: No edema. Non-tender. Skin: No rashes or lesions. Warm. Neurologic: No focal neurological deficits. CN II-XII grossly intact, but not individually tested. Psychiatric: Cooperative. Appropriate mood and affect. Total time spent with patient discussing and formulating plan of care: 35 minutes. This medical document was created using an electronic medical record system with [employer] dictation system. Although this document has been carefully reviewed, there may still be some phonetic and typographical errors. These areas are purely typographical due to imperfections of the software programs, and do not reflect any compromise in the patient's medical care. Consults/Reason for consult Cardiology: Left main coronary artery disease Condition at Discharge: Fair Final Diagnosis/Problems List -coronary artery disease involving left main coronary artery and left anterior descending artery -history of CVA -atrial fibrillation -primary hypertension -diabetes mellitus -dyslipidemia -BPH Discharge Disposition: Acute Care Facility Discharge Instruct/Medications Diet: Cardiac 2g Na,low cholest Activity: No Restrictions, As Tolerated Medications: Refer to medication reconciliation form Scheduled Benazepril Hcl (Benazepril Hcl), 10 MG PO DAILY, (Reported) Furosemide (Furosemide), 40 MG PO DAILY, (Reported) Metformin Hydrochloride (Metformin Hcl), 1 TAB PO BIDBRS, (Reported) Metoprolol Tartrate (Metoprolol Tartrate), 50 MG PO BID, (Reported) Nitroglycerin (Ntrostat Sublingual), 0.4 MG SL PRN, (Reported) Potassium Chloride (Potassium Chloride ER), 20 MEQ PO DAILY, (Reported) Rivaroxaban (Xarelto Tablet), 1 TAB PO DAILY, (Reported) Sertraline Hcl (Zoloft), 1 TAB PO DAILY, (Reported) Simvastatin (Simvastatin), 1 TAB PO QPM, (Reported) Tamsulosin Hcl (Tamsulosin Hcl), 0.4 MG PO QPM, (Reported) 36 Discharge Statement: "Patient was advised to return to the ER or call 911 if any headaches, dizziness, shortness of breath, chest pain, abdominal pain, bleeding, fevers, or worsening of medical condition. Patient was counseled about treatment plan, medications, possible side effects, patientverbalized understanding. All questions were answered to the best of my ability. This discharge took greater then 30 minutes in planning, reviewing documentation, counseling the patient, and discussing with other team members." ASSESSMENT ASSESSMENT Assessment CAD Date of Service: Jul 13, 2025 Billing Provider: PASCUAL PIERSON NP Common Visit Codes: [id number]/[id number] DISCH DAY >30min PASCUAL PIERSON NP Jul 13, 2025 08:34
[2025-07-13] MEDS ORDERED: SERTRALINE HCL 50 MG TAB PO SCH (10:00)
[2025-07-13] MEDS ORDERED: TAMSULOSIN HYDROCHLORIDE 0.4 MG CAP PO SCH (18:00)
== END 2025-07-12 22:50 | disposition short-term general hospital (02) | DRG 287 ==
LOC: CATH 09:52 → OVERFLOW 14:17 → TELE-WESTW 16:38
PROVIDERS: ADMIT Nurse Practitioner Acute Care; ATTEND Internal Medicine
PROC: 4A023N7 Measurement of Cardiac Sampling and Pressure, Left Heart, Percutaneous Approach (ICD-10-PCS; principal; 2025-07-12)
PROC: B211YZZ Fluoroscopy of Multiple Coronary Arteries using Other Contrast (ICD-10-PCS; 2025-07-12)
PROC: B215YZZ Fluoroscopy of Left Heart using Other Contrast (ICD-10-PCS; 2025-07-12)
PROC: 4A033BC Measurement of Arterial Pressure, Coronary, Percutaneous Approach (ICD-10-PCS; 2025-07-12)
DX: I25.10 Atherosclerotic heart disease of native coronary artery without angina pectoris (principal); E11.9 Type 2 diabetes mellitus without complications; I10 Essential (primary) hypertension; E78.5 Hyperlipidemia, unspecified; I48.91 Unspecified atrial fibrillation; N40.0 Benign prostatic hyperplasia without lower urinary tract symptoms; Z86.73 Personal history of transient ischemic attack (TIA), and cerebral infarction without residual deficits
CPT/HCPCS: 0523T; 93458; 36415; 80053; 82962; 85025; 85610; 85730; 99152; G0378; J1815; J2250; Q9967